=== PATIENT | female | born 1965 | race Caucasian/White ===

== ENCOUNTER 2021-11-24 23:08 | Inpatient (IN) | payer SELFPAY ==
[2021-11-24 23:14] VITALS: TEMP 36.3
--- NOTE | 2021-11-24 23:15 | RT.EKG_ITS ---
APPROVED REPORT Exam: Resting ECG Reason for Exam: syncope Patient Location: E HR:106 bpm ECG Measurements Heart Rate 106 AXIS SD 170 P 98 QRSd 94 QRS 55 QT 370 T 79 QTc 493 Conclusion Sinus tachycardia...rate> 99 Right atrial enlargement...P>0.25mV 2 lds or<-0.24mV aVR/aVL Abnrm T, consider ischemia, anterolateral lds...T <-0.20mV, I aVL V2-V6 significant motion artifact, sinus tachycardia
[2021-11-24 23:18] VITALS: RESP 26
--- NOTE | 2021-11-24 23:45 | DI.CT_ITS ---
Exam(s) CT HEAD WO EXAM: CT HEAD WO CLINICAL HISTORY: altered mental status. TECHNIQUE: Imaging Protocol: Axial computed tomography images with coronal and sagittal reformatted images were created and reviewed COMPARISON: No exams were available for comparison FINDINGS: There are no skull fractures nor fluid in the visualized paranasal sinuses. There is no evidence of intracranial hemorrhage, mass effect, or shift of midline structures. There are no extra-axial fluid collections. The ventricles are not enlarged or shifted and there is no blo od within the ventricular system nor within the basal cisterns. There is some mild bilateral periventricular hypodensity consistent chronic small vessel disease. So me asymmetric hypodensity in the right frontal lobe white matter noted which is most probably from pr ior ischemic event. IMPRESSION: White matter findings as described above, most prominent in the right frontal lobe. If clinically indicated follow-up MRI with diffusion imaging can be performed. RADIATION DOSE DELIVERED: 715.42mGy.cm Total DLP DATA REPOSITORY: All CT scans at this facility are submitted to the National Radiology Data Registry (NRDR) Dose Index Registry (DIR) with the [employer] (ACR). RADIATION OPTIMIZATION: All CT scans at this facility use at least one of these dose optimization te chniques: automated exposure control; mA and/or kV adjustment per patient size (includes targeted exa ms where dose is matched to clinical indication); or iterative reconstruction.
--- NOTE | 2021-11-24 23:45 | DI.CT_ITS ---
Exam(s) CT CHEST/ABD/PEL WO EXAM: CT CHEST/ABD/PEL WO CLINICAL HISTORY: ams, ?pneumonia, ?cirrhosis. TECHNIQUE: Imaging Protocol: Axial computed tomography images with coronal and sagittal reformatted images were created and reviewed CONTRAST MATERIAL: Intravenous: none Oral: None COMPARISON: No exams were available for comparison FINDINGS: CHEST: LUNGS: There are no significant focal right lung findings. In the left lung there are 2 adjacent fang und-glass nodular infiltrates in the apical posterior segment of the left upper lobe, with the larger of these 2 adjacent findings measuring 1.3 x 0.9 cm. The more medial and smaller nodular infiltrate at that level measures 7 x 6 millimeters. There is a tiny 2-3 millimeter fissure based nodule seen laterally in the left lung superior lingular segment level.. No pleural effusions on either side. MEDIASTINUM: No obvious hilar nor mediastinal adenopathy. Visualized thyroid unremarkable. CARDIAC: Heart size is normal. There is no pericardial effusion.Caliber of the thoracic aorta is wit hin normal limits. OSSEOUS: No significant osseous lesions.No fractures. ABDOMEN: There is no ascites. LIVER: There are no obvious focal hepatic lesions evident of this noninfused study. GALLBLADDER/BILIARY: No obvious gallbladder pathology. CBD is not dilated. PANCREAS: No evidence of obvious pancreatic mass nor dilatation of the pancreatic duct. SPLEEN: Spleen is not enlarged. No obvious intrasplenic lesions. ADRENALS: There are no significant adrenal masses. KIDNEYS: No calculi nor hydronephrosis. No obvious solid renal masses. No cysts evident. ABDOMINAL AORTA: Mild fusiform dilatation of the inferior aspect of the abdominal aorta. Maximum nicolás meter, however, is only 2 cm. The common iliac arteries are heavily calcified and not dilated. LYMPH NODES: There is no retroperitoneal nor para-aortic adenopathy. ABDOMINAL WALL/GI: No evidence of significant anterior abdominal wall nor inguinal hernia. There is a diffuse colitis pattern involving the inter tire colon with relative sparing of the rectos igmoid. Remainder of the colon exhibits circumferential mural thickening and pericolonic streaking. PELVIS: LYMPH NODES: There is no intrapelvic nor inguinal adenopathy. GI: No evidence of appendicitis.No evidence of sigmoid diverticulitis. URINARY BLADDER: No calculi nor obvious masses evident REPRODUCTIVE: Uterus is surgically absent. There are no abnormal adnexal masses. OSSEOUS: No significant osseous lesions. IMPRESSION: 1. There are 2 noncalcified ground-glass nodular infiltrates in the left upper lobe, with the larger of the 2 measuring 13 x 9 millimeters. These require follow-up. No other focal lung findings and no pleural effusions nor intrathoracic adenopathy. 2. There is a diffuse colitis pattern involving the entire colon with relative sparing of the rectosi gmoid. Infectious versus inflammatory versus is ischemic. 3. No ascites evident. RADIATION DOSE DELIVERED: 976.23mGy.cm Total DLP DATA REPOSITORY: All CT scans at this facility are submitted to the National Radiology Data Registry (NRDR) Dose Index Registry (DIR) with the [employer] (ACR). RADIATION OPTIMIZATION: All CT scans at this facility use at least one of these dose optimization te chniques: automated exposure control; mA and/or kV adjustment per patient size (includes targeted exa ms where dose is matched to clinical indication); or iterative reconstruction.
--- NOTE | 2021-11-24 23:47 | ED.GENADUL_ITS ---
Discharge Plan Disposition Patient Disposition: [facility] INPATIENT Condition: Serious Discharge Details Clinical Impression: Uremia, Altered mental status Primary Care Provider: Unknown,Unknown ED Provider: Fuad Tamez Home Meds and New Rx's Prescriptions: No Action No Known Home Meds Medical Decision Making 57 yo female with unknown medical history comes in with ems with altered mental status. It is unclear how long she was altered for, ems was called by unknown person in [place] for ams. The patient arrives alert but is not oriented to place or time, does know her name. She states she is in [place] and that she lives in [place] but I'm not sure if this is accurate given most answers she gives are not correct. She is noted to be jaundiced, when asked if she drinks alcohol she says sometimes. She denies any pain anywhere, has asterixis on exam is restless in the bed, and doesn't follow commands. I suspect that she is in hepatic encephalopathy based on her exam findings, will evaluate for potential sdh with ct, evaluate for pneumonia, cirrhosis with ct chest/abd pelvis and also evaluate for electrolyte abnormalities. History limited due to patient's AMS, never been at this hospital, and no bystanders we can contact (ems did not have any numbers either for close contacts or family). pt's head ct unremarkable, chest ct shows no focal consolidation, minimal nonspecific subpleural nodularity in right upper lobe infectious vs inflammatory. CT abdomen shows mild colitis, has not produced any diarrhea here. . Labs remarkable for wbc of 16 with plt of 33, bun 96, creatinine 6.3 with gfr 6.83, bilirbuin 2.0, ast 100, troponin 200 which is likely from the underlying renal issue and not type 1 mi, lipase 1333, negative ammonia level. She remains altered, concern this could be hepatorenal syndrome vs severe dehydration vs sepsis. Given unclear picture and the groud glass opacities on CT and colitis on CT ordered zosyn, discussed with hospitalist who accepts for admission for continued monitoring and treatment. 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 K is 3.1 but given her renal function being so low will hold on repletion repeat troponin essentially unchanged, pt stable still normotensive with HR of 80 Differential Diagnosis Differential Diagnosis: cirrhosis, wernicke's, electrolyte abnormality Imaging Data Radiologic Study: Attestation: I personally reviewed and interpreted this imaging study as follows: Imaging: CT Scan Radiologist's impression: Exam: CT Head Without Contrast Exam date and time: 11/25/2021 12:36 AM Age: 57 years old Clinical indication: Altered mental status/memory loss; Patient HX: AMS TECHNIQUE: Imaging protocol: Computed tomography of the head without contrast. COMPARISON: No relevant prior studies available. FINDINGS: Brain: Prominence of cerebral sulci reflects an element of cerebral atrophy. Poorly marginated hypodensities seen throughout the deep and periventricular white matter of both cerebral hemispheres are consistent with microvascular ischemic changes and more focal encephalomalacia involving cortex and subcortical white matter in the anterolateral right frontal lobe is consistent with a superimposed chronic ischemic insult. Brainstem and cerebellum are unremarkable and there is no evidence of acute infarct or recent intracranial hemorrhage. Cerebral ventricles: Mild dilatation of the 3rd and lateral ventricles is commensurate with the degree of cerebral atrophy. Paranasal sinuses: Mucosal disease is seen along the inferior margins of the right maxillary sinus with other paranasal sinuses clear throughout. Mastoid air cells: Grossly clear bilaterally. Bones/joints: Bony calvarium and skull base are intact and no acute fractures are detected. Soft tissues: Unremarkable. IMPRESSION: Cerebral atrophy and chronic ischemic changes with no evidence of acute infarct, recent hemorrhage or hydrocephalus. No acute intracranial process is detected. Radiologic Study #2: Attestation: I personally reviewed and interpreted this imaging study as follows: Imaging: CT Scan Radiologist's impression: PROCEDURE INFORMATION: Exam: CT Chest Without Contrast; Diagnostic Exam date and time: 11/25/2021 12:38 AM Age: 57 years old Clinical indication: Condition or disease; Patient HX: AMS, ? cirrhosis, ? pneumonia TECHNIQUE: Imaging protocol: Diagnostic computed tomography of the chest without contrast. COMPARISON: No relevant prior studies available. FINDINGS: Lungs: Vague minimal ground-glass attenuation in the left upper lobe. 5 mm vague ground-glass density in the lower lobes. Minimal emphysema. Faint subpleural nodules in the right lung apex No consolidation. No masses. Pleural spaces: No pneumothorax. No pleural effusion. Heart: No cardiomegaly. No pericardial effusion. Lymph nodes: No enlarged lymph nodes. Vasculature: No aortic aneurysm. Bones/joints: Unremarkable. No acute fracture. Soft tissues: Unremarkable. IMPRESSION: No focal consolidation observed Minimal nonspecific subpleural nodularity in the right upper lobe and vague ground-glass densities bilaterally. Findings are of unclear etiology and may be infectious/inflammatory. Consider continued chest CT follow-up within 6- 12 months IMPRESSION: Mild colitis as described presumed infectious/inflammatory. Correlate for Clostridium difficile Thank you for allowing us to participate in the care of your patient. Lab Data Lab results reviewed: Yes I reviewed the patient's lab results. ECG Data Attestation: I personally reviewed and interpreted this ECG (s) as follows: Prior ECG tracings: not available for review Interpretation: significant motion artifact limits interpretation, rate of 106, no acute isch emic findings HPI General Mode of arrival: EMS . Date/Time Provider Initiated Documentation: 11/24/21 23:15 . Limitations to Documentation: altered mental status . Information obtained by: EMS . History of Present Illness 57 year old F presents to the emergency department with the chief complaint of altered mental status, Patient started experiencing this unknown No relieving factors improve symptom(s), No exacerbating factors reported . Patient did receive the following treatments prior to arrival, none Related Data Home Medications Medication Instructions Recorded Confirmed Unknown [No Known Home Meds] 11/24/21 11/24/21 Allergies Allergy/AdvReac Type Severity Reaction Status Date / Time No Known Allergies Allergy Unverified 11/24/21 23:18 General Stated Complaint: AMS/LOC CANDELARIA: 3 Review of Systems Unobtainable due to mental status PFSH All Active Problems (Updated 11/25/21 @ 04:02 by Fuad Tamez MD) Uremia (Acute) Altered mental status (Acute) Social History Smoking/Tobacco Use Status: Current-Occasional Smoking risk assessment performed?: Yes Details: Patient unable to answer questions. Do you feel safe at home: Yes Do you feel safe in your relationship?: Yes Exam Const General: no acute distress Orientation: alert and not oriented x3 HENMT Head: normal to inspection Ears: external ears normal General nose exam: external nose normal Mouth: moist mucous membranes Eyes General: appearance normal, both eyes and all related structures Neck Neck: normal visual inspection Resp Effort & Inspection: normal respiratory effort and able to speak in complete sentences Cardio Rate: regular rate Skin General skin exam: jaundice Neuro General: patient alert and patient oriented x3 Extrem General: normal to inspection Psych Mental Status: mental status grossly normal Course Vital Signs Vital signs: Vital Signs Temperature 36.3 C L 05/14/22 23:14 Temperature 36.3 C L 11/24/21 23:14 Temperature Source Skin 11/24/21 23:14 Respiratory Rate 26 H 11/24/21 23:18 Respiratory Effort 11/24/21 23:18 Respiratory Depth Normal 11/24/21 23:18 Respiratory Pattern Normal 11/24/21 23:18 Pain Level 0 11/24/21 23:14
[2021-11-25] VITALS (101 sets, daily range): BP systolic 101–187; BP diastolic 57–84; PULSE 87–110; RESP 16–38; TEMP 36.3–37.3; O2SAT 87–100
--- NOTE | 2021-11-25 00:54 | DI.VRAD_ITS ---
PROCEDURE INFORMATION: Exam: CT Head Without Contrast Exam date and time: 11/25/2021 12:36 AM Age: 57 years old Clinical indication: Altered mental status/memory loss; Patient HX: AMS TECHNIQUE: Imaging protocol: Computed tomography of the head without contrast. COMPARISON: No relevant prior studies available. FINDINGS: Brain: Prominence of cerebral sulci reflects an element of cerebral atrophy. Poorly marginated hypodensities seen throughout the deep and periventricular white matter of both cerebral hemispheres are consistent with microvascular ischemic changes and more focal encephalomalacia involving cortex and subcortical white matter in the anterolateral right frontal lobe is consistent with a superimposed chronic ischemic insult. Brainstem and cerebellum are unremarkable and there is no evidence of acute infarct or recent intracranial hemorrhage. Cerebral ventricles: Mild dilatation of the 3rd and lateral ventricles is commensurate with the degree of cerebral atrophy. Paranasal sinuses: Mucosal disease is seen along the inferior margins of the right maxillary sinus with other paranasal sinuses clear throughout. Mastoid air cells: Grossly clear bilaterally. Bones/joints: Bony calvarium and skull base are intact and no acute fractures are detected. Soft tissues: Unremarkable. IMPRESSION: Cerebral atrophy and chronic ischemic changes with no evidence of acute infarct, recent hemorrhage or hydrocephalus. No acute intracranial process is detected. Dictated and Authenticated by: Travis Alonso MD. Ordering:ROSARIO Merida MD
--- NOTE | 2021-11-25 01:06 | DI.VRAD_ITS ---
PROCEDURE INFORMATION: Exam: CT Chest Without Contrast; Diagnostic Exam date and time: 11/25/2021 12:38 AM Age: 57 years old Clinical indication: Condition or disease; Patient HX: AMS, ? cirrhosis, ? pneumonia TECHNIQUE: Imaging protocol: Diagnostic computed tomography of the chest without contrast. COMPARISON: No relevant prior studies available. FINDINGS: Lungs: Vague minimal ground-glass attenuation in the left upper lobe. 5 mm vague ground-glass density in the lower lobes. Minimal emphysema. Faint subpleural nodules in the right lung apex No consolidation. No masses. Pleural spaces: No pneumothorax. No pleural effusion. Heart: No cardiomegaly. No pericardial effusion. Lymph nodes: No enlarged lymph nodes. Vasculature: No aortic aneurysm. Bones/joints: Unremarkable. No acute fracture. Soft tissues: Unremarkable. IMPRESSION: No focal consolidation observed Minimal nonspecific subpleural nodularity in the right upper lobe and vague ground-glass densities bilaterally. Findings are of unclear etiology and may be infectious/inflammatory. Consider continued chest CT follow-up within 6-12 months PROCEDURE INFORMATION: Exam: CT Abdomen And Pelvis Without Contrast Exam date and time: 11/25/2021 12:38 AM Age: 57 years old Clinical indication: Condition or disease; Patient HX: AMS, ? cirrhosis, ? pneumonia TECHNIQUE: Imaging protocol: Computed tomography of the abdomen and pelvis without contrast. COMPARISON: No relevant prior studies available. FINDINGS: Liver: Normal. No mass. Gallbladder and bile ducts: Normal. No calcified stones. No ductal dilation. Pancreas: Normal. No ductal dilation. Spleen: Normal. No splenomegaly. Adrenal glands: Normal. No mass. Kidneys and ureters: Normal. No hydronephrosis. Stomach and bowel: No obstruction. Mild colonic mucosal thickening with minimal surrounding infiltration and fluid. Appendix: No evidence of appendicitis. Intraperitoneal space: Unremarkable. No free air. No significant fluid collection. Vasculature: Atherosclerosis. No abdominal aortic aneurysm. Lymph nodes: Unremarkable. No enlarged lymph nodes. Urinary bladder: Unremarkable as visualized. Reproductive: Post hysterectomy Bones/joints: Unremarkable. No acute fracture. Soft tissues: Unremarkable. IMPRESSION: Mild colitis as described presumed infectious/inflammatory. Correlate for Clostridium difficile Dictated and Authenticated by: Ifeanyi Mcclellan MD. Ordering:ROSARIO Merida MD
[2021-11-25 01:22] LABS: Source Nasal/Nares
[2021-11-25 01:24] LABS: BE (Venous) -8 mmol/L (-2-3); HCO3 (Venous) 19 mmol/L (23-28); O2 Sat (Venous) 49 %; TCO2 (Venous) 17 mmol/L (24-29); pCO2 (Venous) 39 mmHg (41-51); pO2 (Venous) 29 mmHg
[2021-11-25 01:29] LABS: Abs Immature Grans 0.79 10^3/uL (0.0-0.06); HGB 13.5 g/dL (11.2-15.7); MCH 31.1 pg (27.0-33.0); MCHC 35.5 % (32.0-36.0); MCV 88 fL (80-95); RBC 4.34 10^6/uL (3.93-5.22); RDW 13.3 % (11.7-14.6); RDW-SD 42.9 fL; WBC 16.19 10^3/uL (4.4-10.8)
[2021-11-25 01:41] LABS: ALT 30 U/L (14-59); AST 100 U/L (15-37); Albumin 2.7 g/dL (3.4-5.0); Alkaline Phosphatase 83 U/L (46-116); Anion Gap 17.4 mmol/L (3-11); Bilirubin, Direct 0.9 mg/dL (0.0-0.2); CO2 19.6 mmol/L (21.0-32.0); Calcium 9.1 mg/dL (8.5-10.1); Chloride 95 mmol/L (98-107); Estimated GFR 6.83 (mL/min/1.73m2); Glucose 150 mg/dL (74-106); Lipase 1333 U/L (73-393); Magnesium 2.4 mg/dL (1.8-2.4); Potassium 3.1 mmol/L (3.5-5.1); Sodium 132 mmol/L (136-145); Total Protein 6.8 g/dL (6.4-8.2)
[2021-11-25 01:45] LABS: Ammonia 10 umol/L (11-32)
[2021-11-25 01:50] LABS: Troponin I 208 ng/L (<or=60)
[2021-11-25 01:53] LABS: ETHANOL BLOOD < 3.0 mg/dL (<10)
[2021-11-25 01:54] LABS: BUN 96 mg/dL (7-18); CREATININE 6.3 mg/dL (0.55-1.02)
[2021-11-25 01:56] LABS: Salicylate 4.2 mg/dL (<2.8)
[2021-11-25 02:06] LABS: Absolute Basophil Count 0.16 10^3/uL (0.0-0.2); Absolute Lymphocyte Count 3.08 10^3/uL (1.2-3.4); Absolute Neutrophil Count 11.49 10^3/uL (1.2-6.7); Atypical Lymphocytes % 3; Bands % 3; Metamyelocytes % 1; Platelet Count 33 10^3/uL (130-400)
[2021-11-25 02:07] LABS: Acetaminophen < 2 ug/mL (10-30); Diff Comment Manual Differential; RBC Morphology Normal
[2021-11-25] MEDS: Normal Saline 1,000 ML 1000 ML IV (02:38)
[2021-11-25] MEDS: Normal Saline 500 ML 1000 ML IV ×3 (03:00→13:52)
[2021-11-25 03:03] LABS: COVID-19 PCR Negative (Negative)
[2021-11-25 03:42] LABS: Lactate 3.6 mmol/L (0.6-1.4)
[2021-11-25 04:03] LABS: Troponin I 211 ng/L (<or=60)
[2021-11-25] MEDS: THIAMINE 500 MG in Normal Saline 100 ML 200 MG IVPB ×3 (04:22→20:18)
[2021-11-25 04:33] LABS: Procalcitonin 1.1 ng/mL
[2021-11-25] MEDS: PIPERACILLIN/TAZO 4.5 GM in Normal Saline 100 ML IVPB (04:34)
--- NOTE | 2021-11-25 06:41 | HPE_ITS ---
Date of service: 11/25/21 Time of Service: 06:06 Assessment and Plan Assessment and plan (1) Renal failure: Start date: 11/25/21 Status: Acute Assessment and plan: This is a 57-year-old lady who does not seek medical care routinely but no family or friends to represent her history and no previous medical record presented to the ED after an out of collar called EMS to have patient evaluated for altered mental status. She was found to have a creatinine of 6.3 with metabolic acidosis and low potassium. She was admitted for IV hydration and potassium repletion as well as previous labs and further evaluation of her chronic problems including most likely alcoholic cirrhosis with chronic alcoholic hepatitis and daily alcohol use. She does appear to have progressed by management of likely but difficult exam is on appear to be having emesis or abdominal discomfort that she reports. Imaging did reveal possible colitis and also patient has some right upper lobe infiltrates which will need covered with antibiotic therapy. She was placed on Zosyn. Overall she should do well with hydration and her baseline renal function will be manifested with time. Specialty consultation will be sought as needed. Patient is a full code by default. (2) Alcoholic hepatitis without ascites: Start date: 11/25/21 Status: Acute Assessment and plan: IV hydration and trend daily hepatic function. Long-term patient will need further evaluation by hepatology and should be evaluated for esophageal varices. She does have sequela of electrolyte abnormalities and thrombocytopenia with DVT prophylaxis (3) Encephalopathy acute: Start date: 11/25/21 Status: Acute Assessment and plan: Monitor labs daily and watch for clearing of metabolic acidosis. Patient will be treated for possible alcohol withdrawal using CIWA protocol with Ativan. This may worsen before improving with alcohol withdrawal. (4) Alcoholism with alcohol dependence: Start date: 11/25/21 Status: Acute Assessment and plan: She will protocol with Ativan and IV hydration with repletion of electrolyte abnormalities. (5) Pancreatitis, acute: Start date: 11/25/21 Status: Acute Assessment and plan: Bowel rest and follow-up lipase. IV hydration. Ultrasound of abdomen to look at renal collection system because of acute renal failure as well as gallbladder and biliary tree with pancreas when ultrasound available. Pain management as needed. (6) Pneumonia: Start date: 11/25/21 Status: Acute Assessment and plan: Bilateral groundglass opacities and right upper lobe infiltrate possible the patient covered with Zosyn. Follow-up imaging as indicated. (7) Colitis: Start date: 11/25/21 Status: Acute Assessment and plan: Imaging suggested colitis and this would be covered with Zosyn with follow-up clinically. Patient can be further evaluated once her encephalopathy is clearing. (8) NSTEMI (non-ST elevated myocardial infarction): Start date: 11/25/21 Status: Acute Assessment and plan: Patient has no known history of CAD but no history is available. She had elevation in her troponins at least 4 times normal but this is trending downward and thought to be secondary to her acute metabolic state rather than primary cardiac event. Monitor with telemetry and consider follow-up cardiology and echocardiogram if indicated. History of Present Illness History of Present Illness Chief Complaint: Increased confusion with EMS called by unknown caller Narrative: This is a 57-year-old female patient who was brought to the ED after EMS was called by an unknown caller to report to [facility] because of patient's altered mental status. Patient was confused in the ED and stated that she lives in [place], [place] and was very jittery and difficult to examine because of withdrawing with any touch to her body. She does have history of alcohol with drinking daily and she was noted to be jaundiced. In the ED she was found to have alcoholic hepatitis with acute kidney injury at least and possibly worsening of chronic problem of CKD with no history or previous records to review. The creatinine was above 5. He was started on IV fluid resuscitation which will be continued and will have cardiac monitoring with troponins trended with unknown cardiac status. Her lipase was elevated and she will be on bowel rest for now. She is not reporting any symptoms but is very jittery and difficult to engage in conversation he is a very poor historian and probably encephalopathic with her acute renal failure and alcoholic hepatitis though her ammonia level was not elevated. Plan to follow-up with patient is a full code. Imaging did reveal possible pneumonia and colitis. Patient was started on Zosyn in the ED which will be continued. She was noted in the ED to have asterixis which would go along with liver failure. He most likely has chronic liver disease and most likely cirrhosis despite history and her liver enzymes would not be as elevated with this chronic scenario. The patient's alcohol level in the ED was notable and she will be placed on alcohol withdrawal protocol with CIWA scoring and Ativan. By default she is a full code. In the ED: Provider recorded this is a 57-year-old female with unknown medical history comes in with ems with altered mental status. It is unclear how long she was altered for, ems was called by unknown person in [place] for ams. The patient arrives alert but is not oriented to place or time, does know her name. She states she is in [place] and that she lives in [place] but I'm not sure if this is accurate given most answers she gives are not correct. She is noted to be jaundiced, when asked if she drinks alcohol she says sometimes. She denies any pain anywhere, has asterixis on exam is restless in the bed, and doesn't follow commands. I suspect that she is in hepatic encephalopathy based on her exam findings, will evaluate for potential sdh with ct, evaluate for pneumonia, cirrhosis with ct chest/abd pelvis and also evaluate for electrolyte abnormalities. History limited due to patient's AMS, never been at this hospital, and no bystanders we can contact (ems did not have any numbers either for close contacts or family). The provider also noted abnormal electrolytes abnormality which would be repeated. This was consistent with patient's chronic alcohol use. Review of Systems Narrative: 13 point review of systems otherwise unrevealing or stable. PFSH All Active Problems (Updated 11/25/21 @ 11:39 by Speedy Noyola) NSTEMI (non-ST elevated myocardial infarction) (Acute) Colitis (Acute) Pneumonia (Acute) Pancreatitis, acute (Acute) Alcoholism with alcohol dependence (Acute) Encephalopathy acute (Acute) Alcoholic hepatitis without ascites (Acute) Renal failure (Acute) Uremia (Acute) Altered mental status (Acute) Social History Smoking/Tobacco Use Status: Current-Occasional Smoking risk assessment performed?: Yes Details: Patient unable to answer questions. Do you feel safe at home: Yes Do you feel safe in your relationship?: Yes Meds Allergies and Home Medications Allergies Allergy/AdvReac Type Severity Reaction Status Date / Time No Known Allergies Allergy Unverified 11/24/21 23:18 Home Medications Medication Instructions Recorded Confirmed Type Unknown [No Known Home Meds] 11/24/21 11/24/21 History Exam Narrative Exam Narrative: General: Patient is lying in bed on the left side in the position in moderate severe distress being very jittery with any testing in her withdrawal and complain of discomfort. She is not oriented to person or time and is possibly oriented to place knowing that she is in the hospital. She appears older than stated age. She is disheveled. HEENT: Normocephalic, coarsened facial features, eyes with pupils equal and reac tive to light symmetrically, sclerae slightly icteric and extraocular movement intact. Oropharynx with dry mucosa. Neck: Supple without JVD. Lungs: Fair aeration and clear as patient allows exam. Breast: Exam deferred. Heart: Regular rate and rhythm with no appreciable murmur or gallop as patient a llows exam. She withdraws to any touch. Abdomen: Soft with no focalizing tenderness but once again difficult exam with patient withdrawing from examiner to touch. Bowel sounds appear to be normal. Genitalia/rectal: Exam deferred. Skin: Slightly jaundiced, warm and dry. Decreased turgor. Extremities: Without clubbing, cyanosis or pitting edema. Peripheral pulses intact. Neuro: Cranial nerves II through XII grossly intact. Asterixis my exam in the ED and tremulous during my exam. Patient not cooperative. No focalizing motor deficits. No evidence. Psych: Encephalopathic with patient not able to answer questions appropriately, flattened affect and mood noninterpretable. No abnormal thought processes manifested with patient having minimal conversation. Remote and recent memory not testable. Results Imaging Imaging Studies: Exam: CT Head Without Contrast Exam date and time: 11/25/2021 12:36 AM Age: 57 years old Clinical indication: Altered mental status/memory loss; Patient HX: AMS TECHNIQUE: Imaging protocol: Computed tomography of the head without contrast. COMPARISON: No relevant prior studies available. FINDINGS: Brain: Prominence of cerebral sulci reflects an element of cerebral atrophy. Poorly marginated hypodensities seen throughout the deep and periventricular white matter of both cerebral hemispheres are consistent with microvascular ischemic changes and more focal encephalomalacia involving cortex and subcortical white matter in the anterolateral right frontal lobe is consistent with a superimposed chronic ischemic insult. Brainstem and cerebellum are unremarkable and there is no evidence of acute infarct or recent intracranial hemorrhage. Cerebral ventricles: Mild dilatation of the 3rd and lateral ventricles is commensurate with the degree of cerebral atrophy. Paranasal sinuses: Mucosal disease is seen along the inferior margins of the right maxillary sinus with other paranasal sinuses clear throughout. Mastoid air cells: Grossly clear bilaterally. Bones/joints: Bony calvarium and skull base are intact and no acute fractures are detected. Soft tissues: Unremarkable. IMPRESSION: Cerebral atrophy and chronic ischemic changes with no evidence of acute infarct, recent hemorrhage or hydrocephalus. No acute intracranial process is detected. Exam: CT Chest Without Contrast; Diagnostic Exam date and time: 11/25/2021 12:38 AM Age: 57 years old Clinical indication: Condition or disease; Patient HX: AMS, ? cirrhosis, ? pneumonia TECHNIQUE: Imaging protocol: Diagnostic computed tomography of the chest without contrast. COMPARISON: No relevant prior studies available. FINDINGS: Lungs:? Vague minimal ground-glass attenuation in the left upper lobe.? 5 mm vague ground-glass density in the lower lobes.? Minimal emphysema.? Faint subpleural nodules in the right lung apex No consolidation. No masses. Pleural spaces: No pneumothorax. No pleural effusion. Heart: No cardiomegaly. No pericardial effusion. Lymph nodes: No enlarged lymph nodes. Vasculature: No aortic aneurysm.? Bones/joints: Unremarkable. No acute fracture. Soft tissues: Unremarkable. IMPRESSION: No focal consolidation observed Minimal nonspecific subpleural nodularity in the right upper lobe and vague ground-glass densities bilaterally.? Findings are of unclear etiology and may be infectious/inflammatory.? Consider continued chest CT follow-up within 6-12 months PROCEDURE INFORMATION: Exam: CT Abdomen And Pelvis Without Contrast Exam date and time: 11/25/2021 12:38 AM Age: 57 years old Clinical indication: Condition or disease; Patient HX: AMS, ? cirrhosis, ? pneumonia TECHNIQUE: Imaging protocol: Computed tomography of the abdomen and pelvis without contrast. COMPARISON: No relevant prior studies available. FINDINGS: Liver: Normal. No mass. Gallbladder and bile ducts: Normal. No calcified stones. No ductal dilation. Pancreas: Normal. No ductal dilation. Spleen: Normal. No splenomegaly. Adrenal glands: Normal. No mass. Kidneys and ureters: Normal. No hydronephrosis. Stomach and bowel: No obstruction.? Mild colonic mucosal thickening with minimal surrounding infiltration and fluid. Appendix: No evidence of appendicitis. Intraperitoneal space: Unremarkable. No free air. No significant fluid collection. Vasculature:? Atherosclerosis. No abdominal aortic aneurysm. Lymph nodes: Unremarkable. No enlarged lymph nodes. Urinary bladder: Unremarkable as visualized. Reproductive:? Post hysterectomy Bones/joints: Unremarkable. No acute fracture. Soft tissues: Unremarkable. IMPRESSION: Mild colitis as described presumed infectious/inflammatory.? Correlate for Clostridium difficile Labs Result diagrams: 11/24/21 01:15 11/25/21 09:00 Labs: Laboratory Results - last 24 hr 11/24/21 11/24/21 11/24/21 00:49 01:15 01:15 WBC RBC Hgb Hct MCV MCH MCHC RDW Plt Count MPV Immature Gran % Neutrophils % Band Neutrophils % Lymphocytes % Atypical Lymphs % Monocytes % Eosinophils % Basophils % Metamyelocytes % Nucleated RBC % Absolute Neutrophils Absolute Lymphocytes Absolute Monocytes Absolute Eosinophils Absolute Basophils RBC Morphology VBG pH 7.30 L VBG pCO2 39 L VBG pO2 29 VBG HCO3 19 L VBG Total CO2 17 L VBG O2 Saturation 49 VBG Base Excess -8 L VBG Lactate Sodium 132 L Potassium 3.1 L Chloride 95 L Carbon Dioxide 19.6 L Anion Gap 17.4 H BUN 96 H* Creatinine 6.3 H* Estimated GFR/1.73 m2 6.83 Glucose 150 H Calcium 9.1 Magnesium 2.4 Total Bilirubin 2.0 H Conjugated Bilirubin 0.9 H AST 100 H ALT 30 Alkaline Phosphatase 83 Ammonia Troponin I Total Protein 6.8 Albumin 2.7 L Lipase 1333 H Procalcitonin Salicylates Acetaminophen Ethyl Alcohol < 3.0 COVID-19 Source Nasal/Nares SARS-CoV-2 (PCR) Negative 11/24/21 11/24/21 11/24/21 01:15 01:15 01:15 WBC 16.19 H RBC 4.34 Hgb 13.5 Hct 38.0 MCV 88 MCH 31.1 MCHC 35.5 RDW 13.3 Plt Count 33 L MPV Immature Gran % See Differential Neutrophils % 68.0 Band Neutrophils % 3 Lymphocytes % 16.0 Atypical Lymphs % 3 Monocytes % 8.0 Eosinophils % 0.0 Basophils % 1.0 Metamyelocytes % 1 Nucleated RBC % 0.0 Absolute Neutrophils 11.49 H Absolute Lymphocytes 3.08 Absolute Monocytes 1.30 H Absolute Eosinophils 0.00 Absolute Basophils 0.16 RBC Morphology Normal VBG pH VBG pCO2 VBG pO2 VBG HCO3 VBG Total CO2 VBG O2 Saturation VBG Base Excess VBG Lactate Sodium Potassium Chloride Carbon Dioxide Anion Gap BUN Creatinine Estimated GFR/1.73 m2 Glucose Calcium Magnesium Total Bilirubin Conjugated Bilirubin AST ALT Alkaline Phosphatase Ammonia 10 L Troponin I Total Protein Albumin Lipase Procalcitonin Salicylates 4.2 Acetaminophen < 2 Ethyl Alcohol COVID-19 Source SARS-CoV-2 (PCR) 11/24/21 11/25/21 11/25/21 01:15 03:20 03:20 WBC RBC Hgb Hct MCV MCH MCHC RDW Plt Count MPV Immature Gran % Neutrophils % Band Neutrophils % Lymphocytes % Atypical Lymphs % Monocytes % Eosinophils % Basophils % Metamyelocytes % Nucleated RBC % Absolute Neutrophils Absolute Lymphocytes Absolute Monocytes Absolute Eosinophils Absolute Basophils RBC Morphology VBG pH VBG pCO2 VBG pO2 VBG HCO3 VBG Total CO2 VBG O2 Saturation VBG Base Excess VBG Lactate 3.6 H* Sodium Potassium Chloride Carbon Dioxide Anion Gap BUN Creatinine Estimated GFR/1.73 m2 Glucose Calcium Magnesium Total Bilirubin Conjugated Bilirubin AST ALT Alkaline Phosphatase Ammonia Troponin I 208 H* 211 H* Total Protein Albumin Lipase Procalcitonin 1.1 Salicylates Acetaminophen Ethyl Alcohol COVID-19 Source SARS-CoV-2 (PCR) Last Vital Signs Temp 36.6 C 11/25/21 05:16 Pulse 96 H 11/25/21 05:26 Resp 19 11/25/21 04:55 BP 125/59 L 11/25/21 04:55 Pulse Ox 99 11/25/21 04:55
[2021-11-25] MEDS: MULTIVITAMIN 10 ML, THIAMINE 100 MG, FOLIC ACID 1 MG in DEXTROSE 5%-0.45% SALINE 1,000 ML 150 ML IV (08:17)
[2021-11-25 09:03] LABS: Lactate 0.8 mmol/L (0.6-1.4)
[2021-11-25 09:14] LABS: INR 1.2 (0.9-1.1)
[2021-11-25] MEDS: Lactated Ringers 1,000 ML 1000 ML IV (09:26)
--- NOTE | 2021-11-25 09:26 | PT.INNT ---
PT Notes Visit Reasons: Altered Mental Status, Uremia Orders received on this date for PT evaluation. Patient undergoing further medical treatment. IE on hold until tomorrow per nursing (Tim). Fuad Singer PT, DPT
[2021-11-25 09:50] LABS: Anion Gap 16.9 mmol/L (3-11); CO2 15.1 mmol/L (21.0-32.0); Calcium 7.8 mg/dL (8.5-10.1); Chloride 102 mmol/L (98-107); Estimated GFR 6.96 (mL/min/1.73m2); Glucose 127 mg/dL (74-106); Potassium 3.3 mmol/L (3.5-5.1); Sodium 134 mmol/L (136-145); TSH (W/Ref FT4) 0.92 uIU/mL (0.36-3.74)
[2021-11-25 09:53] LABS: BUN 98 mg/dL (7-18); CREATININE 6.2 mg/dL (0.55-1.02); Troponin I 173 ng/L (<or=60)
[2021-11-25 10:08] LABS: Lab Add On Test DONE
[2021-11-25 10:24] LABS: Creatine Kinase 564 U/L (26-192)
[2021-11-25] MEDS: LORazepam 2 MG/ML VIAL 1 MG IVP ×2 (10:41)
--- NOTE | 2021-11-25 11:31 | W.PM.PROGNOT ---
Date of Service Date of service: 11/25/21 Time of Service: 10:32 Subjective Subjective Patient reports: still having pain and other Interval history since last seen: Patient still has not made urine, given 2 liter of IVF, she is also having pain to bilateral CVA, unable to obtain u/s today, will obtain renal u/s tomorrow, urology consult. Continue to follow labs. Patient is jaundice, unable to answer questions, does appear that she is a drinker. Will do CIWA, given dose ativan, she is starting to make small amount urine in tube on examination. She is being transferred to ICU at m/s status. Will change to ICU status if patient does not start to turn around make urine and recover or starts to go through severe w/d, can not give phenobarb d/t renal function which has only slightly dropped. Will continue to monitor. Will place u/s for tomorrow and order hep panel. discussed negar Nugent Objective Last Vital Signs Temp 36.8 C 11/25/21 07:33 Pulse 99 H 11/25/21 07:33 Resp 24 11/25/21 07:33 BP 113/71 11/25/21 07:33 Pulse Ox 97 11/25/21 07:33 Laboratory Results - last 24 hr 11/24/21 11/24/21 11/24/21 00:49 01:15 01:15 WBC RBC Hgb Hct MCV MCH MCHC RDW Plt Count MPV Immature Gran % Neutrophils % Band Neutrophils % Lymphocytes % Atypical Lymphs % Monocytes % Eosinophils % Basophils % Metamyelocytes % Nucleated RBC % Absolute Neutrophils Absolute Lymphocytes Absolute Monocytes Absolute Eosinophils Absolute Basophils RBC Morphology PT INR VBG pH 7.30 L VBG pCO2 39 L VBG pO2 29 VBG HCO3 19 L VBG Total CO2 17 L VBG O2 Saturation 49 VBG Base Excess -8 L VBG Lactate Sodium 132 L Potassium 3.1 L Chloride 95 L Carbon Dioxide 19.6 L Anion Gap 17.4 H BUN 96 H* Creatinine 6.3 H* Estimated GFR/1.73 m2 6.83 Glucose 150 H Calcium 9.1 Magnesium 2.4 Total Bilirubin 2.0 H Conjugated Bilirubin 0.9 H AST 100 H ALT 30 Alkaline Phosphatase 83 Ammonia Creatine Kinase Troponin I Total Protein 6.8 Albumin 2.7 L Lipase 1333 H Procalcitonin TSH Salicylates Acetaminophen Ethyl Alcohol < 3.0 COVID-19 Source Nasal/Nares SARS-CoV-2 (PCR) Negative Add-On Test Request 11/24/21 11/24/21 11/24/21 01:15 01:15 01:15 WBC 16.19 H RBC 4.34 Hgb 13.5 Hct 38.0 MCV 88 MCH 31.1 MCHC 35.5 RDW 13.3 Plt Count 33 L MPV Immature Gran % See Differential Neutrophils % 68.0 Band Neutrophils % 3 Lymphocytes % 16.0 Atypical Lymphs % 3 Monocytes % 8.0 Eosinophils % 0.0 Basophils % 1.0 Metamyelocytes % 1 Nucleated RBC % 0.0 Absolute Neutrophils 11.49 H Absolute Lymphocytes 3.08 Absolute Monocytes 1.30 H Absolute Eosinophils 0.00 Absolute Basophils 0.16 RBC Morphology Normal PT INR VBG pH VBG pCO2 VBG pO2 VBG HCO3 VBG Total CO2 VBG O2 Saturation VBG Base Excess VBG Lactate Sodium Potassium Chloride Carbon Dioxide Anion Gap BUN Creatinine Estimated GFR/1.73 m2 Glucose Calcium Magnesium Total Bilirubin Conjugated Bilirubin AST ALT Alkaline Phosphatase Ammonia 10 L Creatine Kinase Troponin I Total Protein Albumin Lipase Procalcitonin TSH Salicylates 4.2 Acetaminophen < 2 Ethyl Alcohol COVID-19 Source SARS-CoV-2 (PCR) Add-On Test Request 11/24/21 11/25/21 11/25/21 01:15 03:20 03:20 WBC RBC Hgb Hct MCV MCH MCHC RDW Plt Count MPV Immature Gran % Neutrophils % Band Neutrophils % Lymphocytes % Atypical Lymphs % Monocytes % Eosinophils % Basophils % Metamyelocytes % Nucleated RBC % Absolute Neutrophils Absolute Lymphocytes Absolute Monocytes Absolute Eosinophils Absolute Basophils RBC Morphology PT INR VBG pH VBG pCO2 VBG pO2 VBG HCO3 VBG Total CO2 VBG O2 Saturation VBG Base Excess VBG Lactate 3.6 H* Sodium Potassium Chloride Carbon Dioxide Anion Gap BUN Creatinine Estimated GFR/1.73 m2 Glucose Calcium Magnesium Total Bilirubin Conjugated Bilirubin AST ALT Alkaline Phosphatase Ammonia Creatine Kinase Troponin I 208 H* 211 H* Total Protein Albumin Lipase Procalcitonin 1.1 TSH Salicylates Acetaminophen Ethyl Alcohol COVID-19 Source SARS-CoV-2 (PCR) Add-On Test Request 11/25/21 11/25/21 11/25/21 09:00 09:00 09:00 WBC RBC Hgb Hct MCV MCH MCHC RDW Plt Count MPV Immature Gran % Neutrophils % Band Neutrophils % Lymphocytes % Atypical Lymphs % Monocytes % Eosinophils % Basophils % Metamyelocytes % Nucleated RBC % Absolute Neutrophils Absolute Lymphocytes Absolute Monocytes Absolute Eosinophils Absolute Basophils RBC Morphology PT 12.0 H INR 1.2 H VBG pH VBG pCO2 VBG pO2 VBG HCO3 VBG Total CO2 VBG O2 Saturation VBG Base Excess VBG Lactate Sodium 134 L Potassium 3.3 L Chloride 102 Carbon Dioxide 15.1 L Anion Gap 16.9 H BUN 98 H* Creatinine 6.2 H* Estimated GFR/1.73 m2 6.96 Glucose 127 H Calcium 7.8 L Magnesium Total Bilirubin Conjugated Bilirubin AST ALT Alkaline Phosphatase Ammonia Creatine Kinase Troponin I 173 H* Total Protein Albumin Lipase Procalcitonin TSH Cancelled 0.92 Salicylates Acetaminophen Ethyl Alcohol COVID-19 Source SARS-CoV-2 (PCR) Add-On Test Request 11/25/21 11/25/21 11/25/21 09:00 09:00 Unknown WBC RBC Hgb Hct MCV MCH MCHC RDW Plt Count MPV Immature Gran % Neutrophils % Band Neutrophils % Lymphocytes % Atypical Lymphs % Monocytes % Eosinophils % Basophils % Metamyelocytes % Nucleated RBC % Absolute Neutrophils Absolute Lymphocytes Absolute Monocytes Absolute Eosinophils Absolute Basophils RBC Morphology PT INR VBG pH VBG pCO2 VBG pO2 VBG HCO3 VBG Total CO2 VBG O2 Saturation VBG Base Excess VBG Lactate 0.8 Sodium Potassium Chloride Carbon Dioxide Anion Gap BUN Creatinine Estimated GFR/1.73 m2 Glucose Calcium Magnesium Total Bilirubin Conjugated Bilirubin AST ALT Alkaline Phosphatase Ammonia Creatine Kinase 564 H Troponin I Total Protein Albumin Lipase Procalcitonin TSH Salicylates Acetaminophen Ethyl Alcohol COVID-19 Source SARS-CoV-2 (PCR) Add-On Test Request DONE
[2021-11-25] MEDS: Normal Saline 1,000 ML 2000 ML IV (12:19)
--- NOTE | 2021-11-25 12:50 | W.ANESVAS ---
Midline Placement Date Performed: 11/25/21 Procedure Time: 12:16 Requesting Provider: Yissel Rudd Procedure Location: Med/Surg Sedation Given (Indicate Dose Given): No Sedation given Patient Mental Status: Awake Sterility: Hand Hygiene, Surgical Cap, Surgical Mask, Sterile Gloves and Chlorhexidine Laterality: Right Insertion Site: Brachial Midline Device: PowerGlide Pro 20G Catheter Length: 10 cm Midline Procedure Procedure: 1% Lidocaine to skin and subcutaneous tissue with 25g needle, Vessel accessed with catheter over needle, Guidewire placed with ease, Catheter placed without resistance and Guidewire removed Dressing: Tegaderm Applied and Statlock Applied Blood Return: Present Flushes: Easily Ultrasound: Sterile probe cover and gel used Ultrasound Image Saved?: Yes Number of Attempts (See previous attempts in note section): 2 Procedure Tolerated: No Complications Procedure Outcome: Successful Performed By: oCrie Macario Supervised By: Jonn Dozier
[2021-11-25 13:55] LABS: C Diff PCR Positive (Negative)
[2021-11-25 15:41] LABS: Anion Gap 12.4 mmol/L (3-11); CO2 18.6 mmol/L (21.0-32.0); Calcium 7.5 mg/dL (8.5-10.1); Chloride 104 mmol/L (98-107); Estimated GFR 7.23 (mL/min/1.73m2); Glucose 138 mg/dL (74-106); Sodium 135 mmol/L (136-145)
[2021-11-25 15:43] LABS: Creatine Kinase 619 U/L (26-192)
[2021-11-25 15:46] LABS: BUN 96 mg/dL (7-18)
[2021-11-25] MEDS: Nicotine 14 MG/24 HR PATCH TD (15:47)
[2021-11-25] MEDS: Lactated Ringers 1,000 ML 200 ML IV ×2 (15:48→20:19)
[2021-11-25] MEDS: metroNIDAZOLE 500 MG/100 ML BAG 100 MG IVPB ×2 (15:48→22:43)
[2021-11-25 16:38] LABS: Lab Add On Test DONE
--- NOTE | 2021-11-25 17:08 | PDOC.CMIN ---
- If Service Date Differs Date of service: 11/25/21 Time of Service: 17:08 Care Management Initial Assess REASON FOR HOSPITALIZATION:: Altered Mental Status, Uremia PAST MEDICAL HISTORY/PAST SURGICAL HISTORY:: All Active Problems. NSTEMI (non-ST elevated myocardial infarction) (Acute). Colitis (Acute). Pneumonia (Acute). Pancreatitis, acute (Acute). Alcoholism with alcohol dependence (Acute). Encephalopathy acute (Acute). Alcoholic hepatitis without ascites (Acute). Renal failure (Acute). Uremia (Acute). Altered mental status (Acute) PREVIOUS FUNCTIONAL STATUS/SOCIAL/FAMILY SUPPORTS:: Carla was not able to engage, therefore her history was reported from her sister, Marysol. Carla has 5 siblings, one of which from cirrhosis. Carla has four children. Her youngest daughter a couple years ago from complications from diabetes. Carla has a long history of ETOH use, and often passes up on social gatherings, if she isn't able to drink. She is independent with ADL's. CURRENT FUNCTIONAL STATUS:: Carla was not able to engage with CM due to her AMS. CM asked Carla if she was ok with [facility] sharing information with her sister, Marysol, and she said yes. Marysol was in the room, and Carla recognized her. Marysol called her Homa, which is her middle name, and she responds to it. CM completed a HIPAA with her RN as a witness to the verbal permission. She was transferred to the ICU due to her instability today. CM will continue to follow. ADVANCE DIRECTIVES:: Not on file. Has patient been provided with info about the portal/API?: No Did the patient sign up for the portal?: No CODE STATUS:: Full Code INSURANCE COVERAGE / FINANCIAL ISSUES:: Unknown. CM discussed this with access, and asked that they follow up tomorrow to see if she is able to provide this information. CURRENT HOME/COMMUNITY SERVICES/EQUIPMENT:: No known services/equipment. PRIMARY CARE PHYSICIAN:: Unknown. POTENTIAL DISCHARGE NEEDS:: Evaluations for further needs, volleyball coach, follow up appointments. PATIENT/FAMILY EDUCATION NEEDS:: Review discharge instructions and limitations, discussion of self care needs including ask me three. ANTICIPATED BARRIERS TO DISCHARGE:: None identified. TRANSPORTATION:: Via private vehicle with family. PLAN:: Carla Luther was moved to the ICU today for closer monitoring. She will likely return home once medically cleared. Her family will drive her home via private vehicle. She will follow up with her PCP and discharge plan of care. CM will continue to follow.
[2021-11-25] MEDS: HYDROmorphone 2 MG/ML SYR 1 MG IVP (20:38)
[2021-11-25 21:33] LABS: Bilirubin Small (Negative); Blood Large (Negative); Clarity Cloudy (Clear); Glucose 100 mg/dL (Negative); Ketones Negative (Negative); Leukocyte Esterase Small (Negative); Nitrite Positive (Negative); Urobilinogen 0.2 EU/dL (Up TO 0.2)
[2021-11-25 21:40] LABS: *AMPHETAMINES SCREEN URINE Negative (Negative); *BARBITURATES SCREEN URINE Negative (Negative); *BENZODIAZEPINES SCREEN URINE Negative (Negative); Cannabinoids THC Negative (Negative); Cocaine Screen,Urine Negative (Negative); METHADONE URINE SCREEN Negative (Negative); OPIATES URINE SCREEN Negative (Negative); Tricyclic Antidepressants Negative (Negative)
[2021-11-25 21:43] LABS: Epithelial Cells Few HPF (Negative); Other Cells Rare Transitional (Negative); WBC 20-50 HPF (0-5)
[2021-11-25 21:44] LABS: Bacteria Many HPF (Negative); C & S Indicated? Yes; Casts Negative LPF (Negative); Crystals Negative HPF (Negative); Mucus Moderate (Negative)
[2021-11-26] VITALS (20 sets, daily range): BP systolic 103–190; BP diastolic 57–81; PULSE 92–135; RESP 18–33; TEMP 37–37.1; O2SAT 96
[2021-11-26] MEDS: Lactated Ringers 1,000 ML 200 ML IV ×2 (01:27→06:23)
[2021-11-26] MEDS: THIAMINE 500 MG in Normal Saline 100 ML 200 MG IVPB ×2 (04:15→12:56)
[2021-11-26] MEDS: Normal Saline Flush 10 ML SYR IVP ×2 (05:44→18:30)
[2021-11-26 06:38] LABS: Abs Immature Grans 0.47 10^3/uL (0.0-0.06); Absolute Eosinophil Count 0.07 10^3/uL (0.0-0.7); Absolute Lymphocyte Count 1.52 10^3/uL (1.2-3.4); Absolute Monocyte Count 1.93 10^3/uL (0.1-0.8); Basophils % 0.4; Eosinophils % 0.6; HCT 24.7 % (36.0-46.0); HGB 8.8 g/dL (11.2-15.7); Immature Grans % 4.1; Lymphocytes % 13.4; MCH 31.4 pg (27.0-33.0); MCHC 35.6 % (32.0-36.0); MCV 88 fL (80-95); Neutrophils % 64.5; Nucleated RBC 0.3 % (0.0-0.3); RDW 15.4 % (11.7-14.6); RDW-SD 48.8 fL; WBC 11.33 10^3/uL (4.4-10.8)
[2021-11-26 06:43] LABS: Absolute Basophil Count 0.05 10^3/uL (0.0-0.2); Absolute Neutrophil Count 7.31 10^3/uL (1.2-6.7)
[2021-11-26 07:15] LABS: Diff Comment Diff Reviewed; Platelet Count 14 10^3/uL (130-400)
[2021-11-26 07:16] LABS: Poikilocytes 2+
--- NOTE | 2021-11-26 07:18 | PUCC_ITS ---
General Date of Service Date of service: 11/26/21 Time of Service: 06:18 Reason for Admission to ICU: Acute renal failure Assessment and Plan Assessment and plan (1) Troponin level elevated: Status: Acute (2) Thrombocytopenia: Status: Chronic (3) Elevated lipase: Status: Acute (4) Alcoholic hepatitis without ascites: Status: Acute (5) Uremic encephalopathy: Status: Acute (6) C. difficile colitis: Status: Acute (7) Acute renal failure: Status: Acute (8) Hypokalemia: Status: Acute (9) Coagulopathy: Status: Acute (10) Lactic acidosis: Status: Acute (11) High anion gap metabolic acidosis: Status: Acute (12) Normal anion gap metabolic acidosis: Status: Acute (13) Hypoalbuminemia: Status: Acute Assessment and plan: This is a 57 yo female who is admitted to the ICU who likely has alcoholic induced hepatitis with liver function abnormalities in addition to C. Diff with suspected very poor PO intakes matched with insensible losses from the diarrhea who now has acute renal failure. She has uremic encephalopathy and possible withdrawal. Despite significant fluid resuscitation she remains euvolemic and has not had any significant improvement in her renal function (only 240cc output since 11/24/21). Given the liver failure an albumin and Lasix challenge may improve her urine output and this will be given this morning in addition to a 750cc bolus. I will discontinue the maintenance fluids as they have not helped her. She is indicated for dialysis due to the uremic encephalopathy and with the low urine output her case should be discussed with a tertiary care center for consideration of transfer. Recommendations Pulmonary: No acute concerns Cardiac: Elevated Troponin - due to demand ischemia and troponin retention due to renal failure - no need to continue to trend Renal: Acute renal failure - likely ATN - albumin 25% with Lasix 100mg - bolus 750cc LR - discontinue maintenance fluids - repeat UA - getting renal ultrasound today - recommend renal consultation Mixed AGMA and NAGMA - Uremia causing GAP acidosis - non GAP cause by both renal failure and GI losses - urine sodium, urine potassium, urine chloride to assess urine GAP to determine main driving cause of NAGMA Lactic acidosis, resolved - resolve with fluids Hypokalemia - would only given very low dose repletion if K falls below 3.2 I&O: Intake & Output 11/23/21 11/24/21 11/25/21 11/26/21 23:59 23:59 23:59 23:59 Intake Total 7544.533 / 7544.533 2090. / Output Total 155 / 155 Balance 7389.533 / 7389.533 / Weight 66 kg 71.6 kg Daily Fluid Goal:: positive, 1L GI Nutrition: Nutrition - patient unable to eat - chocking due to encephalopathy - if cannot take in PO by tomorrow recommend NGT placement with renal tube feeds Elevated lipase - unclear if this is pancreatitis - elevated lipase and abdominal pain - pain from pancreas versus colitis - no need to continue trending this Liver Dysfunction - agree with acute hepatitis panel - agree with ultrasound Date of Last Bowel Movement: 11/25/21 Infectious Disease: C. Diff colitis - no diarrhea overnight - on IV Flagyl as she cannot swallow - if NGT placed tomorrow then would give PO Vanc Hematologic: Thrombocytopenia - worsening today due to dilution - agree with holing DVT ppx for now - due to hepatitis vs sepsis - likely none of the platelets are even functional given uremia Coagulopathy - will send for DIC labs Neurologic: Uremic Encephalopathy - recommend discussion with nephrology about dialysis - avoid deliriogenic medications if possible - continue to monitor Possible EtOH withdrawal? - on CIWA protocol - would try to avoid giving alot of ativan if possible - on IV thiamine Endocrine: No acute concerns Lines: Midline [place] Prophylaxis: Holding DVT ppx - thrombocytopenia and uremia Code Status: Resuscitation Status Full Code Subjective Critical and life-threatening events over the past 24 hours: This is a 57 yo female with an unclear medical history, but one that may include alcohol abuse who had several days of little to no PO intake and diarrhea from C. Diff. She was found to have acute renal failure and was started on fluids. She is currently almost 10L positive currently without drastic improvement in UOP or Cr/BUN. She also has altered mental status. Her baseline renal function is unknown and there are no known home medications. Her lipase is elevated and she has abdominal pain but her CT is not consistent with pancreatitis, and her abdominal pain may infact be due to the C. Diff. She told me she has abdominal pain when asked. She does not know her name or where she is. Exam Narrative Exam Narrative: POCUS 11/26/21: Adequate cardiac windows obtained. Normal cardiac function with possibly an underfilled RV. IVC is small and flattens >50% with inspiration. Gen: NAD, icteric appearing. HENT: PERRL, moist oral mucosa, Mallampati 2, No LAD or JVD Chest: No respiratory distress, normal appearance of chest, clear to auscultation bilaterally, no crackles or wheezes, normal inspiratory effort Heart: regular rate and rhythym, no murmurs, rubs or gallops Abdomen: Non-distended, soft, tender Extremities: No clubbing, edema, cyanosis, rashes Neuro: Non-focal, tremors present, AAOx0 Psych: cooperative Most Recent VS/Results Last Vital Signs Temp 37.0 C 11/26/21 04:35 Pulse 92 H 11/26/21 06:00 Resp 24 11/26/21 07:00 BP 172/81 H 11/26/21 06:00 Pulse Ox 96 11/26/21 00:00 Laboratory Results - last 24 hr 11/25/21 11/25/21 11/25/21 09:00 09:00 09:00 WBC RBC Hgb Hct MCV MCH MCHC RDW Plt Count MPV Immature Gran % Neutrophils % Lymphocytes % Monocytes % Eosinophils % Basophils % Nucleated RBC % Absolute Neutrophils Absolute Lymphocytes Absolute Monocytes Absolute Eosinophils Absolute Basophils RBC Morphology Poikilocytosis PT 12.0 H INR 1.2 H VBG Lactate Sodium 134 L Potassium 3.3 L Chloride 102 Carbon Dioxide 15.1 L Anion Gap 16.9 H BUN 98 H* Creatinine 6.2 H* Estimated GFR/1.73 m2 6.96 Glucose 127 H Calcium 7.8 L Phosphorus Magnesium Total Bilirubin Conjugated Bilirubin AST ALT Alkaline Phosphatase Creatine Kinase Troponin I 173 H* Total Protein Albumin Lipase TSH Cancelled 0.92 Urine Color Urine Clarity Urine pH Ur Specific [place] Urine Protein Urine Ketones Urine Blood Urine Nitrite Urine Bilirubin Urine Urobilinogen Ur Leukocyte Esterase Urine RBC Urine WBC Ur Epithelial Cells Urine Crystals Urine Bacteria Urine Casts Urine Mucus Urine Other Ur Culture Indicated? Urine Glucose Stl C.difficile Tox PCR Urine Opiates Screen Urine Methadone Screen Ur Barbiturates Screen Ur Tricyclics Screen Ur Amphetamines Screen U Benzodiazepines Scrn Urine Cocaine Screen Ur THC Screen Add-On Test Request 11/25/21 11/25/21 11/25/21 09:00 09:00 12:33 WBC RBC Hgb Hct MCV MCH MCHC RDW Plt Count MPV Immature Gran % Neutrophils % Lymphocytes % Monocytes % Eosinophils % Basophils % Nucleated RBC % Absolute Neutrophils Absolute Lymphocytes Absolute Monocytes Absolute Eosinophils Absolute Basophils RBC Morphology Poikilocytosis PT INR VBG Lactate 0.8 Sodium Cancelled Potassium Cancelled Chloride Cancelled Carbon Dioxide Cancelled Anion Gap Cancelled BUN Cancelled Creatinine Cancelled Estimated GFR/1.73 m2 Cancelled Glucose Cancelled Calcium Cancelled Phosphorus Magnesium Total Bilirubin Conjugated Bilirubin AST ALT Alkaline Phosphatase Creatine Kinase 564 H Troponin I Total Protein Albumin Lipase TSH Urine Color Urine Clarity Urine pH Ur Specific [place] Urine Protein Urine Ketones Urine Blood Urine Nitrite Urine Bilirubin Urine Urobilinogen Ur Leukocyte Esterase Urine RBC Urine WBC Ur Epithelial Cells Urine Crystals Urine Bacteria Urine Casts Urine Mucus Urine Other Ur Culture Indicated? Urine Glucose Stl C.difficile Tox PCR Urine Opiates Screen Urine Methadone Screen Ur Barbiturates Screen Ur Tricyclics Screen Ur Amphetamines Screen U Benzodiazepines Scrn Urine Cocaine Screen Ur THC Screen Add-On Test Request 11/25/21 11/25/21 11/25/21 12:45 15:15 15:15 WBC RBC Hgb Hct MCV MCH MCHC RDW Plt Count MPV Immature Gran % Neutrophils % Lymphocytes % Monocytes % Eosinophils % Basophils % Nucleated RBC % Absolute Neutrophils Absolute Lymphocytes Absolute Monocytes Absolute Eosinophils Absolute Basophils RBC Morphology Poikilocytosis PT INR VBG Lactate Sodium 135 L Potassium 3.0 L Chloride 104 Carbon Dioxide 18.6 L Anion Gap 12.4 H BUN 96 H* Creatinine 6.0 H* Estimated GFR/1.73 m2 7.23 Glucose 138 H Calcium 7.5 L Phosphorus Magnesium Total Bilirubin Conjugated Bilirubin AST ALT Alkaline Phosphatase Creatine Kinase 619 H Troponin I Total Protein Albumin Lipase TSH Urine Color Urine Clarity Urine pH Ur Specific [place] Urine Protein Urine Ketones Urine Blood Urine Nitrite Urine Bilirubin Urine Urobilinogen Ur Leukocyte Esterase Urine RBC Urine WBC Ur Epithelial Cells Urine Crystals Urine Bacteria Urine Casts Urine Mucus Urine Other Ur Culture Indicated? Urine Glucose Stl C.difficile Tox PCR Positive A Urine Opiates Screen Urine Methadone Screen Ur Barbiturates Screen Ur Tricyclics Screen Ur Amphetamines Screen U Benzodiazepines Scrn Urine Cocaine Screen Ur THC Screen Add-On Test Request 11/25/21 11/25/21 11/25/21 15:15 18:33 21:20 WBC RBC Hgb Hct MCV MCH MCHC RDW Plt Count MPV Immature Gran % Neutrophils % Lymphocytes % Monocytes % Eosinophils % Basophils % Nucleated RBC % Absolute Neutrophils Absolute Lymphocytes Absolute Monocytes Absolute Eosinophils Absolute Basophils RBC Morphology Poikilocytosis PT INR VBG Lactate Sodium Cancelled Potassium Cancelled Chloride Cancelled Carbon Dioxide Cancelled Anion Gap Cancelled BUN Cancelled Creatinine Cancelled Estimated GFR/1.73 m2 Cancelled Glucose Cancelled Calcium Cancelled Phosphorus Magnesium Total Bilirubin Conjugated Bilirubin AST ALT Alkaline Phosphatase Creatine Kinase Troponin I Total Protein Albumin Lipase TSH Urine Color Dark Yellow Urine Clarity Cloudy Urine pH 7.0 Ur Specific [place] 1.020 Urine Protein >=300 H Urine Ketones Negative Urine Blood Large H Urine Nitrite Positive H Urine Bilirubin Small H Urine Urobilinogen 0.2 Ur Leukocyte Esterase Small H Urine RBC 10-20 H Urine WBC 20-50 H Ur Epithelial Cells Few Urine Crystals Negative Urine Bacteria Many Urine Casts Negative Urine Mucus Moderate Urine Other Rare Transitional Ur Culture Indicated? Yes Urine Glucose 100 Stl C.difficile Tox PCR Urine Opiates Screen Urine Methadone Screen Ur Barbiturates Screen Ur Tricyclics Screen Ur Amphetamines Screen U Benzodiazepines Scrn Urine Cocaine Screen Ur THC Screen Add-On Test Request DONE 11/25/21 11/25/21 11/25/21 21:20 Unknown Unknown WBC RBC Hgb Hct MCV MCH MCHC RDW Plt Count MPV Immature Gran % Neutrophils % Lymphocytes % Monocytes % Eosinophils % Basophils % Nucleated RBC % Absolute Neutrophils Absolute Lymphocytes Absolute Monocytes Absolute Eosinophils Absolute Basophils RBC Morphology Poikilocytosis PT INR VBG Lactate Sodium Potassium Chloride Carbon Dioxide Anion Gap BUN Creatinine Estimated GFR/1.73 m2 Glucose Calcium Phosphorus Magnesium Total Bilirubin Conjugated Bilirubin AST ALT Alkaline Phosphatase Creatine Kinase Troponin I Total Protein Albumin Lipase TSH Urine Color Urine Clarity Urine pH Ur Specific [place] Urine Protein Urine Ketones Urine Blood Urine Nitrite Urine Bilirubin Urine Urobilinogen Ur Leukocyte Esterase Urine RBC Urine WBC Ur Epithelial Cells Urine Crystals Urine Bacteria Urine Casts Urine Mucus Urine Other Ur Culture Indicated? Urine Glucose Stl C.difficile Tox PCR Urine Opiates Screen Negative Urine Methadone Screen Negative Ur Barbiturates Screen Negative Ur Tricyclics Screen Negative Ur Amphetamines Screen Negative U Benzodiazepines Scrn Negative Urine Cocaine Screen Negative Ur THC Screen Negative Add-On Test Request DONE Cancelled 11/25/21 11/26/21 11/26/21 Unknown 03:22 03:22 WBC 11.33 H RBC 2.80 L Hgb 8.8 L D Hct 24.7 L MCV 88 MCH 31.4 MCHC 35.6 RDW 15.4 H Plt Count 14 L* D MPV Immature Gran % 4.1 Neutrophils % 64.5 Lymphocytes % 13.4 Monocytes % 17.0 Eosinophils % 0.6 Basophils % 0.4 Nucleated RBC % 0.3 Absolute Neutrophils 7.31 H Absolute Lymphocytes 1.52 Absolute Monocytes 1.93 H Absolute Eosinophils 0.07 Absolute Basophils 0.05 RBC Morphology See Below Poikilocytosis 2+ PT INR VBG Lactate Sodium Potassium Chloride Carbon Dioxide Anion Gap BUN Creatinine Estimated GFR/1.73 m2 Glucose Calcium Phosphorus Magnesium Cancelled Total Bilirubin Cancelled Conjugated Bilirubin Cancelled AST Cancelled ALT Cancelled Alkaline Phosphatase Cancelled Creatine Kinase Troponin I Total Protein Cancelled Albumin Cancelled Lipase Cancelled TSH Urine Color Urine Clarity Urine pH Ur Specific [place] Urine Protein Urine Ketones Urine Blood Urine Nitrite Urine Bilirubin Urine Urobilinogen Ur Leukocyte Esterase Urine RBC Urine WBC Ur Epithelial Cells Urine Crystals Urine Bacteria Urine Casts Urine Mucus Urine Other Ur Culture Indicated? Urine Glucose Stl C.difficile Tox PCR Urine Opiates Screen Urine Methadone Screen Ur Barbiturates Screen Ur Tricyclics Screen Ur Amphetamines Screen U Benzodiazepines Scrn Urine Cocaine Screen Ur THC Screen Add-On Test Request [facility] 11/26/21 11/26/21 11/26/21 03:22 03:22 05:55 WBC RBC Hgb Hct MCV MCH MCHC RDW Plt Count MPV Immature Gran % Neutrophils % Lymphocytes % Monocytes % Eosinophils % Basophils % Nucleated RBC % Absolute Neutrophils Absolute Lymphocytes Absolute Monocytes Absolute Eosinophils Absolute Basophils RBC Morphology Poikilocytosis PT Cancelled INR Cancelled VBG Lactate Sodium Cancelled Potassium Cancelled Chloride Cancelled Carbon Dioxide Cancelled Anion Gap Cancelled BUN Cancelled Creatinine Cancelled Estimated GFR/1.73 m2 Cancelled Glucose Cancelled Calcium Cancelled Phosphorus Cancelled Magnesium Total Bilirubin Conjugated Bilirubin AST ALT Alkaline Phosphatase Creatine Kinase Troponin I Total Protein Albumin Lipase TSH Urine Color Urine Clarity Urine pH Ur Specific [place] Urine Protein Urine Ketones Urine Blood Urine Nitrite Urine Bilirubin Urine Urobilinogen Ur Leukocyte Esterase Urine RBC Urine WBC Ur Epithelial Cells Urine Crystals Urine Bacteria Urine Casts Urine Mucus Urine Other Ur Culture Indicated? Urine Glucose Stl C.difficile Tox PCR Urine Opiates Screen Urine Methadone Screen Ur Barbiturates Screen Ur Tricyclics Screen Ur Amphetamines Screen U Benzodiazepines Scrn Urine Cocaine Screen Ur THC Screen Add-On Test Request Review of Systems All systems reviewed & are unremarkable except as noted in HPI and below Time spent with patient Time spent in Critical Care: 50 Time spent in Critical care included: Coordination of care, Chart review, Documenting critically ill care, Time at immediate bedside and Discussing critically ill care with other medical staff
[2021-11-26 07:38] LABS: INR 1.2 (0.9-1.1); Prothrombin Time 11.6 sec (9.3-11.0)
[2021-11-26 07:39] LABS: Calcium 7.8 mg/dL (8.5-10.1); Chloride 105 mmol/L (98-107); Estimated GFR 6.47 (mL/min/1.73m2); Glucose 99 mg/dL (74-106); Potassium 3.4 mmol/L (3.5-5.1); Sodium 136 mmol/L (136-145)
[2021-11-26 07:43] LABS: ALT 47 U/L (14-59); AST 162 U/L (15-37); Albumin 1.6 g/dL (3.4-5.0); Alkaline Phosphatase 55 U/L (46-116); Bilirubin, Total 2.1 mg/dL (0.2-1.0); Lipase 1457 U/L (73-393); Magnesium 2.3 mg/dL (1.8-2.4); PHOSPHORUS 4.2 mg/dL (2.6-4.7); Total Protein 4.7 g/dL (6.4-8.2)
[2021-11-26 07:48] LABS: CREATININE 6.6 mg/dL (0.55-1.02)
[2021-11-26 07:49] LABS: BUN 103 mg/dL (7-18)
[2021-11-26 07:54] LABS: Bilirubin, Direct 0.5 mg/dL (0.0-0.2)
--- NOTE | 2021-11-26 08:00 | DI.US_ITS ---
Exam(s) US ABDOMEN RENAL EXAM: US ABDOMEN RENAL CLINICAL HISTORY: ARF, alcoholic hepatitis, pancreatitis TECHNIQUE: Ultrasound abdomen performed using standard protocol. COMPARISON: CT CT CHEST/ABD/PEL WO from 11/25/2021 FINDINGS: ABDOMINAL AORTA AND IVC: Visualized portions normal caliber. PANCREAS: Normal where visualized. LIVER: Normal. Hepatopedal flow in the Portal Vein. GALLBLADDER: No evidence of cholelithiasis. No evidence of wall thickening. No pericholecystic fluid identified. There are comet tail artifact seen along the gallbladder wall suggestive of adenomyomatos is. BILIARY SYSTEM: Common bile duct measures < 7 mm. No intrahepatic biliary ductal dilation. VILLATORO'S SIGN: Negative. SPLEEN: Cannot be visualized on this examination. ASCITES: Small amount of fluid seen in Lowery's pouch. Renal size in cm: Right: 12.1. Left: 11.9. Echogenicity: Normal. Hydronephrosis: No. Cyst or mass: No. Nephrolithiasis: No. Other findings: There is a trace amount of fluid in the right perinephric region. Bladder:The bladder was essentially empty. Ureteral jets: Right: Cannot be visualized on this examination. Left: Cannot be visualized on this examination. Renal color flow: Symmetric and within normal limits. IMPRESSION: 1. Unremarkable sonographic appearance of the liver. 2. Small amount of fluid seen adjacent to the right kidney and within Morison's pouch. 3. The urinary bladder cannot be visualized as it was nearly empty. DATA REPOSITORY:
[2021-11-26] MEDS: Nicotine 14 MG/24 HR PATCH TD (08:16)
[2021-11-26] MEDS: Furosemide 100 MG/10 ML VIAL IVP (08:17)
[2021-11-26] MEDS: ALBUMIN HUMAN 25 GM/100 ML BTL IV (08:20)
[2021-11-26] MEDS: Lactated Ringers 500 ML 750 ML IV (08:23)
--- NOTE | 2021-11-26 08:25 | OT.INNT ---
Occupational Therapy Notes 11/26/21 OT consult received and pts chart was reviewed. Pt transitioned to the ICU for a decline in medical care. Due to pts decline in medicare care, OT will need a new referral when MD feels that pt is appropriate at that time. Shital Lopez, OTR/L
[2021-11-26 09:06] LABS: Bilirubin Small (Negative); Blood Large (Negative); Clarity Cloudy (Clear); Glucose Negative (Negative); Ketones Negative (Negative); Leukocyte Esterase Small (Negative); Nitrite Positive (Negative); pH 8.5 (5-8)
--- NOTE | 2021-11-26 09:22 | PDOC.CMPRO ---
- If Service Date Differs Date of service: 11/26/21 Time of Service: 09:22 Care Management Progress Note S/O: Homa remains in the ICU but is waiting for transfer to Med-Surg. She was admitted with AMS and uremia in urgent need of dialysis. Phone calls were made by the provider to all of the tertiary care hospitals in [facility] and several out of state but there was no available bed. After lengthy discussion with most of her family (4 siblings, 3 children and 2 close friends), the decision was made to transition her to comfort care. The family shared that Homa would not want to undergo hemodialysis treatments for the rest of her life, nor did she want any medical care. A: Carla who prefers to be called Homa, is a 57 year old woman admitted on 11/25/21with AMS and uremia P:Carla Luthre was moved to the ICU yesterday for closer monitoring. Attempts to transfer her for dialysis were unsuccessful. After consultation with her family (see above), the decision was made to transfer her to comfort care. CM will continue to support Homa and her family and assess for discharge needs.
[2021-11-26 09:28] LABS: Bacteria Few HPF (Negative); C & S Indicated? Yes; Casts 5-10 Hyaline LPF (Negative); Crystals Negative HPF (Negative); Epithelial Cells Few HPF (Negative); Mucus Negative (Negative); RBC >50 HPF (0-2); WBC >50 HPF (0-5)
[2021-11-26] MEDS: metroNIDAZOLE 500 MG/100 ML BAG 100 MG IVPB (09:43)
--- NOTE | 2021-11-26 10:18 | W.UROLOGYCON ---
Date of service: 11/26/21 Time of Service: 11:03 Assessment and Plan Assessment and plan (1) Acute renal failure: Status: Acute Assessment and plan: I am afraid that without hydronephrosis or distended bladder, there is not much that I have to offer. She would be better served with a insurance broker than a urologist History of Present Illness History of Present Illness Chief Complaint: Renal failure Narrative: This is a 57-year-old woman who was admitted over the weekend with renal failure. The patient has never been to our facility and she has an altered mental status, so we have not been able to obtain an accurate history. It is presumed that she has alcoholic hepatitis and pancreatitis. She also has elevated troponins. I been asked to see her because of the renal failure. She has received boluses of fluid along with IV diuretics with minimal urine output Consults Consult date: 11/26/21 Review of Systems Narrative: Unable to obtain due to patient's mental status PFSH All Active Problems (Updated 11/26/21 @ 09:24 by Erica Cuellar MD) Thrombocytopenia (Chronic) Hypoalbuminemia (Acute) Normal anion gap metabolic acidosis (Acute) High anion gap metabolic acidosis (Acute) Lactic acidosis (Acute) Coagulopathy (Acute) Hypokalemia (Acute) Acute renal failure (Acute) C. difficile colitis (Acute) Uremic encephalopathy (Acute) Elevated lipase (Acute) Troponin level elevated (Acute) Pancreatitis, acute (Acute) Alcoholism with alcohol dependence (Acute) Encephalopathy acute (Acute) Alcoholic hepatitis without ascites (Acute) Renal failure (Acute) Uremia (Acute) Altered mental status (Acute) Medical History (Updated 11/26/21 @ 09:24 by Erica Cuellar MD) Colitis Social History Smoking/Tobacco Use Status: Current-Occasional Smoking risk assessment performed?: Yes Details: Patient unable to answer questions. Do you feel safe at home: Yes Do you feel safe in your relationship?: Yes Exam Narrative Exam Narrative: I reviewed the CT scan done on admission and the abdominal ultrasound done this morning. Neither of these studies demonstrate hydronephrosis or distended bladder. Const General: cooperative Limitations: altered mental status GI Palpation: soft, not firm and not rigid Other: Minimal urine output in catheter over the past hour Results Last Vital Signs Temp 37.0 C 11/26/21 07:57 Pulse 98 H 11/26/21 08:00 Resp 29 H 11/26/21 09:00 BP 175/72 H 11/26/21 08:00 Pulse Ox 96 11/26/21 00:00 Labs Result diagrams: 11/26/21 03:22 11/26/21 07:20 Labs: Laboratory Results - last 24 hr 11/25/21 11/25/21 11/25/21 09:00 12:33 12:45 WBC RBC Hgb Hct MCV MCH MCHC RDW Plt Count MPV Immature Gran % Neutrophils % Lymphocytes % Monocytes % Eosinophils % Basophils % Nucleated RBC % Absolute Neutrophils Absolute Lymphocytes Absolute Monocytes Absolute Eosinophils Absolute Basophils RBC Morphology Poikilocytosis PT INR Sodium Cancelled Potassium Cancelled Chloride Cancelled Carbon Dioxide Cancelled Anion Gap Cancelled BUN Cancelled Creatinine Cancelled Estimated GFR/1.73 m2 Cancelled Glucose Cancelled Calcium Cancelled Phosphorus Magnesium Total Bilirubin Conjugated Bilirubin AST ALT Alkaline Phosphatase Creatine Kinase 564 H Total Protein Albumin Lipase Urine Color Urine Clarity Urine pH Ur Specific [place] Urine Protein Urine Ketones Urine Blood Urine Nitrite Urine Bilirubin Urine Urobilinogen Ur Leukocyte Esterase Urine RBC Urine WBC Ur Epithelial Cells Urine Crystals Urine Bacteria Urine Casts Urine Mucus Urine Other Ur Culture Indicated? Urine Glucose Stl C.difficile Tox PCR Positive A Urine Opiates Screen Urine Methadone Screen Ur Barbiturates Screen Ur Tricyclics Screen Ur Amphetamines Screen U Benzodiazepines Scrn Urine Cocaine Screen Ur THC Screen Add-On Test Request 11/25/21 11/25/21 11/25/21 15:15 15:15 15:15 WBC RBC Hgb Hct MCV MCH MCHC RDW Plt Count MPV Immature Gran % Neutrophils % Lymphocytes % Monocytes % Eosinophils % Basophils % Nucleated RBC % Absolute Neutrophils Absolute Lymphocytes Absolute Monocytes Absolute Eosinophils Absolute Basophils RBC Morphology Poikilocytosis PT INR Sodium 135 L Potassium 3.0 L Chloride 104 Carbon Dioxide 18.6 L Anion Gap 12.4 H BUN 96 H* Creatinine 6.0 H* Estimated GFR/1.73 m2 7.23 Glucose 138 H Calcium 7.5 L Phosphorus Magnesium Total Bilirubin Conjugated Bilirubin AST ALT Alkaline Phosphatase Creatine Kinase 619 H Total Protein Albumin Lipase Urine Color Urine Clarity Urine pH Ur Specific [place] Urine Protein Urine Ketones Urine Blood Urine Nitrite Urine Bilirubin Urine Urobilinogen Ur Leukocyte Esterase Urine RBC Urine WBC Ur Epithelial Cells Urine Crystals Urine Bacteria Urine Casts Urine Mucus Urine Other Ur Culture Indicated? Urine Glucose Stl C.difficile Tox PCR Urine Opiates Screen Urine Methadone Screen Ur Barbiturates Screen Ur Tricyclics Screen Ur Amphetamines Screen U Benzodiazepines Scrn Urine Cocaine Screen Ur THC Screen Add-On Test Request DONE 11/25/21 11/25/21 11/25/21 18:33 21:20 21:20 WBC RBC Hgb Hct MCV MCH MCHC RDW Plt Count MPV Immature Gran % Neutrophils % Lymphocytes % Monocytes % Eosinophils % Basophils % Nucleated RBC % Absolute Neutrophils Absolute Lymphocytes Absolute Monocytes Absolute Eosinophils Absolute Basophils RBC Morphology Poikilocytosis PT INR Sodium Cancelled Potassium Cancelled Chloride Cancelled Carbon Dioxide Cancelled Anion Gap Cancelled BUN Cancelled Creatinine Cancelled Estimated GFR/1.73 m2 Cancelled Glucose Cancelled Calcium Cancelled Phosphorus Magnesium Total Bilirubin Conjugated Bilirubin AST ALT Alkaline Phosphatase Creatine Kinase Total Protein Albumin Lipase Urine Color Dark Yellow Urine Clarity Cloudy Urine pH 7.0 Ur Specific [place] 1.020 Urine Protein >=300 H Urine Ketones Negative Urine Blood Large H Urine Nitrite Positive H Urine Bilirubin Small H Urine Urobilinogen 0.2 Ur Leukocyte Esterase Small H Urine RBC 10-20 H Urine WBC 20-50 H Ur Epithelial Cells Few Urine Crystals Negative Urine Bacteria Many Urine Casts Negative Urine Mucus Moderate Urine Other Rare Transitional Ur Culture Indicated? Yes Urine Glucose 100 Stl C.difficile Tox PCR Urine Opiates Screen Negative Urine Methadone Screen Negative Ur Barbiturates Screen Negative Ur Tricyclics Screen Negative Ur Amphetamines Screen Negative U Benzodiazepines Scrn Negative Urine Cocaine Screen Negative Ur THC Screen Negative Add-On Test Request 11/25/21 11/25/21 11/26/21 Unknown Unknown 03:22 WBC RBC Hgb Hct MCV MCH MCHC RDW Plt Count MPV Immature Gran % Neutrophils % Lymphocytes % Monocytes % Eosinophils % Basophils % Nucleated RBC % Absolute Neutrophils Absolute Lymphocytes Absolute Monocytes Absolute Eosinophils Absolute Basophils RBC Morphology Poikilocytosis PT INR Sodium Potassium Chloride Carbon Dioxide Anion Gap BUN Creatinine Estimated GFR/1.73 m2 Glucose Calcium Phosphorus Magnesium Cancelled Total Bilirubin Cancelled Conjugated Bilirubin Cancelled AST Cancelled ALT Cancelled Alkaline Phosphatase Cancelled Creatine Kinase Total Protein Cancelled Albumin Cancelled Lipase Cancelled Urine Color Urine Clarity Urine pH Ur Specific [place] Urine Protein Urine Ketones Urine Blood Urine Nitrite Urine Bilirubin Urine Urobilinogen Ur Leukocyte Esterase Urine RBC Urine WBC Ur Epithelial Cells Urine Crystals Urine Bacteria Urine Casts Urine Mucus Urine Other Ur Culture Indicated? Urine Glucose Stl C.difficile Tox PCR Urine Opiates Screen Urine Methadone Screen Ur Barbiturates Screen Ur Tricyclics Screen Ur Amphetamines Screen U Benzodiazepines Scrn Urine Cocaine Screen Ur THC Screen Add-On Test Request Cancelled TNP 11/26/21 11/26/21 11/26/21 03:22 03:22 03:22 WBC 11.33 H RBC 2.80 L Hgb 8.8 L D Hct 24.7 L MCV 88 MCH 31.4 MCHC 35.6 RDW 15.4 H Plt Count 14 L* D MPV Immature Gran % 4.1 Neutrophils % 64.5 Lymphocytes % 13.4 Monocytes % 17.0 Eosinophils % 0.6 Basophils % 0.4 Nucleated RBC % 0.3 Absolute Neutrophils 7.31 H Absolute Lymphocytes 1.52 Absolute Monocytes 1.93 H Absolute Eosinophils 0.07 Absolute Basophils 0.05 RBC Morphology See Below Poikilocytosis 2+ PT Cancelled INR Cancelled Sodium Cancelled Potassium Cancelled Chloride Cancelled Carbon Dioxide Cancelled Anion Gap Cancelled BUN Cancelled Creatinine Cancelled Estimated GFR/1.73 m2 Cancelled Glucose Cancelled Calcium Cancelled Phosphorus Magnesium Total Bilirubin Conjugated Bilirubin AST ALT Alkaline Phosphatase Creatine Kinase Total Protein Albumin Lipase Urine Color Urine Clarity Urine pH Ur Specific [place] Urine Protein Urine Ketones Urine Blood Urine Nitrite Urine Bilirubin Urine Urobilinogen Ur Leukocyte Esterase Urine RBC Urine WBC Ur Epithelial Cells Urine Crystals Urine Bacteria Urine Casts Urine Mucus Urine Other Ur Culture Indicated? Urine Glucose Stl C.difficile Tox PCR Urine Opiates Screen Urine Methadone Screen Ur Barbiturates Screen Ur Tricyclics Screen Ur Amphetamines Screen U Benzodiazepines Scrn Urine Cocaine Screen Ur THC Screen Add-On Test Request 11/26/21 11/26/21 11/26/21 05:55 07:20 07:20 WBC RBC Hgb Hct MCV MCH MCHC RDW Plt Count MPV Immature Gran % Neutrophils % Lymphocytes % Monocytes % Eosinophils % Basophils % Nucleated RBC % Absolute Neutrophils Absolute Lymphocytes Absolute Monocytes Absolute Eosinophils Absolute Basophils RBC Morphology Poikilocytosis PT INR Sodium 136 Potassium 3.4 L Chloride 105 Carbon Dioxide 15.0 L Anion Gap 16.0 H BUN 103 H* Creatinine 6.6 H* Estimated GFR/1.73 m2 6.47 Glucose 99 Calcium 7.8 L Phosphorus Cancelled 4.2 Magnesium 2.3 Total Bilirubin 2.1 H Conjugated Bilirubin 0.5 H AST 162 H ALT 47 Alkaline Phosphatase 55 Creatine Kinase Total Protein 4.7 L Albumin 1.6 L Lipase 1457 H Urine Color Urine Clarity Urine pH Ur Specific [place] Urine Protein Urine Ketones Urine Blood Urine Nitrite Urine Bilirubin Urine Urobilinogen Ur Leukocyte Esterase Urine RBC Urine WBC Ur Epithelial Cells Urine Crystals Urine Bacteria Urine Casts Urine Mucus Urine Other Ur Culture Indicated? Urine Glucose Stl C.difficile Tox PCR Urine Opiates Screen Urine Methadone Screen Ur Barbiturates Screen Ur Tricyclics Screen Ur Amphetamines Screen U Benzodiazepines Scrn Urine Cocaine Screen Ur THC Screen Add-On Test Request 11/26/21 11/26/21 07:20 08:50 WBC RBC Hgb Hct MCV MCH MCHC RDW Plt Count MPV Immature Gran % Neutrophils % Lymphocytes % Monocytes % Eosinophils % Basophils % Nucleated RBC % Absolute Neutrophils Absolute Lymphocytes Absolute Monocytes Absolute Eosinophils Absolute Basophils RBC Morphology Poikilocytosis PT 11.6 H INR 1.2 H Sodium Potassium Chloride Carbon Dioxide Anion Gap BUN Creatinine Estimated GFR/1.73 m2 Glucose Calcium Phosphorus Magnesium Total Bilirubin Conjugated Bilirubin AST ALT Alkaline Phosphatase Creatine Kinase Total Protein Albumin Lipase Urine Color Dark Yellow Urine Clarity Cloudy Urine pH 8.5 H Ur Specific [place] 1.020 Urine Protein >=300 H Urine Ketones Negative Urine Blood Large H Urine Nitrite Positive H Urine Bilirubin Small H Urine Urobilinogen 1.0 H Ur Leukocyte Esterase Small H Urine RBC >50 H Urine WBC >50 H Ur Epithelial Cells Few Urine Crystals Negative Urine Bacteria Few Urine Casts 5-10 Hyaline Urine Mucus Negative Urine Other Ur Culture Indicated? Yes Urine Glucose Negative Stl C.difficile Tox PCR Urine Opiates Screen Urine Methadone Screen Ur Barbiturates Screen Ur Tricyclics Screen Ur Amphetamines Screen U Benzodiazepines Scrn Urine Cocaine Screen Ur THC Screen Add-On Test Request
[2021-11-26] MEDS: Furosemide 100 MG/10 ML VIAL 120 MG IVP (12:56)
[2021-11-26 13:44] LABS: D-Dimer > 7500 ng/mlFEU (<500); LDH 2933 U/L (81-234)
[2021-11-26] MEDS: HYDROmorphone 2 MG/ML SYR 1 MG IVP ×6 (13:52→22:55)
[2021-11-26] MEDS: LORazepam 2 MG/ML VIAL 1 MG IVP ×6 (13:52→22:55)
--- NOTE | 2021-11-26 15:00 | NT_ITS ---
Date of service: 11/26/21 Time of Service: 14:03 PT Notes Visit Reasons: Altered Mental Status, Uremia Patient is moved to ICU level of care for close monitoring of uremic encephalopathy, acute renal failure, and possible withdrawal symptoms. Will wait for a new referral from hospitalist prior to PT evaluation. Thank you for the opportunity to participate in the care of this patient. Lucie Nascimento PT, DPT, CLT [facility] [place], [place]
[2021-11-26] MEDS: HYDROmorphone 2 MG/ML SYR IVP (15:38)
--- NOTE | 2021-11-26 18:32 | PGE_ITS ---
Date of Service Date of service: 11/26/21 Time of Service: 17:37 Assessment and Plan Assessment and plan (1) Renal failure: Start date: 11/25/21 Status: Acute Assessment and plan: This is a 57-year-old lady who does not seek medical care routinely but no family or friends to represent her history and no previous medical record prese nted to the ED after an out of collar called EMS to have patient evaluated for altered mental status. She was found to have a creatinine of 6.3 with metabolic acidosis and low potassium. She was admitted for IV hydration and potassium repletion as well as previous labs and further evaluation of her chronic problems including most likely alcoholic cirrhosis with chronic alcoholic hepatitis and daily alcohol use. She does appear to have progressed by management of likely but difficult exam is on appear to be having emesis or abdominal discomfort that she reports. Imaging did reveal possible colitis and also patient has some right upper lobe infiltrates which will need covered with antibiotic therapy. She was placed on Zosyn. Overall she should do well with hydration and her baseline renal function will be manifested with time.Pulmonary/critical care consulted. Patient is a full code by default. Her creatinine increased to 6.6. BUN increasted to 103. Remains confused. Now showing more signs of pain and or restlessness. Urine output scant. Has not responding to 8L fluid boluses; along with albumin followed by diuretics. Decision to possibly transfer for dialysis and intensive care vs comfort care was ongoing this AM. Seven hospitals called; 6 at capacity and 1 declined. [facility] did accept her, but after family meeting that included her 4 sisters and 3 children, it was decided that [facility] was what the patient would have wanted and in her best interest. All family members were in agreement. She had voiced to family that she did not want medical interventions. She had not formally designated a healthcare DPOA. She did not follow with any medical providers as an outpatient. IV Dilaudid and Ativan initiated along with other prn [facility] [facility] orders. Palliative consulted and will need Hospice consult. (2) Alcoholic hepatitis without ascites: Start date: 11/25/21 Status: Acute Assessment and plan: Now [employer] status (3) Encephalopathy acute: Start date: 11/25/21 Status: Acute Assessment and plan: Secondary to Uremia. (4) Alcoholism with alcohol dependence: Start date: 11/25/21 Status: Acute Assessment and plan: Now [employer] status (5) Pancreatitis, acute: Start date: 11/25/21 Status: Acute Assessment and plan: PRN dilaudid. (6) Pneumonia: Start date: 11/25/21 Status: Ruled-out Assessment and plan: Initially on Zosyn. Now [employer] status. Supplemental O2 for comfort. (7) Colitis: Start date: 11/25/21 Assessment and plan: C.Difficile +. Stools have slowed significantly. (8) NSTEMI (non-ST elevated myocardial infarction): Start date: 11/25/21 Status: Ruled-out Assessment and plan: Now [employer] [facility] status. Subjective Subjective Patient reports: bowel movement (Freq of stools declining) and afebrile; denies vomiting Interval history since last seen: Pt lethargic. Exam Narrative Exam Narrative: Jaundiced appearing female. Asleep. Arouses to verbal commands. Eyes General: appearance normal, both eyes and all related structures Pupils: regular Resp Effort & Inspection: normal respiratory effort Auscultation: clear to auscultation bilaterally, no rales and no rhonchi Cardio Rate: regular rate Rhythm: regular rhythm Heart Sounds: S1 normal and S2 normal GI Palpation: soft and tender Extrem General: no pedal edema and no calf tenderness Objective Last Vital Signs Temp 37.1 C 11/26/21 11:00 Pulse 111 H 11/26/21 15:37 Resp 18 11/26/21 16:12 BP 103/57 L 11/26/21 15:37 Pulse Ox 96 11/26/21 00:00 Laboratory Results - last 24 hr 11/25/21 11/25/21 11/26/21 21:20 21:20 03:22 WBC RBC Hgb Hct MCV MCH MCHC RDW Plt Count MPV Immature Gran % Neutrophils % Lymphocytes % Monocytes % Eosinophils % Basophils % Nucleated RBC % Absolute Neutrophils Absolute Lymphocytes Absolute Monocytes Absolute Eosinophils Absolute Basophils RBC Morphology Poikilocytosis PT INR D-Dimer Sodium Potassium Chloride Carbon Dioxide Anion Gap BUN Creatinine Estimated GFR/1.73 m2 Glucose Calcium Phosphorus Magnesium Cancelled Total Bilirubin Cancelled Conjugated Bilirubin Cancelled AST Cancelled ALT Cancelled Alkaline Phosphatase Cancelled Lactate Dehydrogenase Total Protein Cancelled Albumin Cancelled Lipase Cancelled Urine Color Dark Yellow Urine Clarity Cloudy Urine pH 7.0 Ur Specific [place] 1.020 Urine Protein >=300 H Urine Ketones Negative Urine Blood Large H Urine Nitrite Positive H Urine Bilirubin Small H Urine Urobilinogen 0.2 Ur Leukocyte Esterase Small H Urine RBC 10-20 H Urine WBC 20-50 H Ur Epithelial Cells Few Urine Crystals Negative Urine Bacteria Many Urine Casts Negative Urine Mucus Moderate Urine Other Rare Transitional Ur Culture Indicated? Yes Urine Glucose 100 Urine Opiates Screen Negative Urine Methadone Screen Negative Ur Barbiturates Screen Negative Ur Tricyclics Screen Negative Ur Amphetamines Screen Negative U Benzodiazepines Scrn Negative Urine Cocaine Screen Negative Ur THC Screen Negative 11/26/21 11/26/21 11/26/21 03:22 03:22 03:22 WBC 11.33 H RBC 2.80 L Hgb 8.8 L D Hct 24.7 L MCV 88 MCH 31.4 MCHC 35.6 RDW 15.4 H Plt Count 14 L* D MPV Immature Gran % 4.1 Neutrophils % 64.5 Lymphocytes % 13.4 Monocytes % 17.0 Eosinophils % 0.6 Basophils % 0.4 Nucleated RBC % 0.3 Absolute Neutrophils 7.31 H Absolute Lymphocytes 1.52 Absolute Monocytes 1.93 H Absolute Eosinophils 0.07 Absolute Basophils 0.05 RBC Morphology See Below Poikilocytosis 2+ PT Cancelled INR Cancelled D-Dimer Sodium Cancelled Potassium Cancelled Chloride Cancelled Carbon Dioxide Cancelled Anion Gap Cancelled BUN Cancelled Creatinine Cancelled Estimated GFR/1.73 m2 Cancelled Glucose Cancelled Calcium Cancelled Phosphorus Magnesium Total Bilirubin Conjugated Bilirubin AST ALT Alkaline Phosphatase Lactate Dehydrogenase Total Protein Albumin Lipase Urine Color Urine Clarity Urine pH Ur Specific [place] Urine Protein Urine Ketones Urine Blood Urine Nitrite Urine Bilirubin Urine Urobilinogen Ur Leukocyte Esterase Urine RBC Urine WBC Ur Epithelial Cells Urine Crystals Urine Bacteria Urine Casts Urine Mucus Urine Other Ur Culture Indicated? Urine Glucose Urine Opiates Screen Urine Methadone Screen Ur Barbiturates Screen Ur Tricyclics Screen Ur Amphetamines Screen U Benzodiazepines Scrn Urine Cocaine Screen Ur THC Screen 11/26/21 11/26/21 11/26/21 05:55 07:20 07:20 WBC RBC Hgb Hct MCV MCH MCHC RDW Plt Count MPV Immature Gran % Neutrophils % Lymphocytes % Monocytes % Eosinophils % Basophils % Nucleated RBC % Absolute Neutrophils Absolute Lymphocytes Absolute Monocytes Absolute Eosinophils Absolute Basophils RBC Morphology Poikilocytosis PT INR D-Dimer Sodium 136 Potassium 3.4 L Chloride 105 Carbon Dioxide 15.0 L Anion Gap 16.0 H BUN 103 H* Creatinine 6.6 H* Estimated GFR/1.73 m2 6.47 Glucose 99 Calcium 7.8 L Phosphorus Cancelled 4.2 Magnesium 2.3 Total Bilirubin 2.1 H Conjugated Bilirubin 0.5 H AST 162 H ALT 47 Alkaline Phosphatase 55 Lactate Dehydrogenase Total Protein 4.7 L Albumin 1.6 L Lipase 1457 H Urine Color Urine Clarity Urine pH Ur Specific [place] Urine Protein Urine Ketones Urine Blood Urine Nitrite Urine Bilirubin Urine Urobilinogen Ur Leukocyte Esterase Urine RBC Urine WBC Ur Epithelial Cells Urine Crystals Urine Bacteria Urine Casts Urine Mucus Urine Other Ur Culture Indicated? Urine Glucose Urine Opiates Screen Urine Methadone Screen Ur Barbiturates Screen Ur Tricyclics Screen Ur Amphetamines Screen U Benzodiazepines Scrn Urine Cocaine Screen Ur THC Screen 11/26/21 11/26/21 11/26/21 07:20 08:50 12:55 WBC RBC Hgb Hct MCV MCH MCHC RDW Plt Count MPV Immature Gran % Neutrophils % Lymphocytes % Monocytes % Eosinophils % Basophils % Nucleated RBC % Absolute Neutrophils Absolute Lymphocytes Absolute Monocytes Absolute Eosinophils Absolute Basophils RBC Morphology Poikilocytosis PT 11.6 H INR 1.2 H D-Dimer Sodium Potassium Chloride Carbon Dioxide Anion Gap BUN Creatinine Estimated GFR/1.73 m2 Glucose Calcium Phosphorus Magnesium Total Bilirubin Conjugated Bilirubin AST ALT Alkaline Phosphatase Lactate Dehydrogenase 2933 H Total Protein Albumin Lipase Urine Color Dark Yellow Urine Clarity Cloudy Urine pH 8.5 H Ur Specific [place] 1.020 Urine Protein >=300 H Urine Ketones Negative Urine Blood Large H Urine Nitrite Positive H Urine Bilirubin Small H Urine Urobilinogen 1.0 H Ur Leukocyte Esterase Small H Urine RBC >50 H Urine WBC >50 H Ur Epithelial Cells Few Urine Crystals Negative Urine Bacteria Few Urine Casts 5-10 Hyaline Urine Mucus Negative Urine Other Ur Culture Indicated? Yes Urine Glucose Negative Urine Opiates Screen Urine Methadone Screen Ur Barbiturates Screen Ur Tricyclics Screen Ur Amphetamines Screen U Benzodiazepines Scrn Urine Cocaine Screen Ur THC Screen 11/26/21 12:55 WBC RBC Hgb Hct MCV MCH MCHC RDW Plt Count MPV Immature Gran % Neutrophils % Lymphocytes % Monocytes % Eosinophils % Basophils % Nucleated RBC % Absolute Neutrophils Absolute Lymphocytes Absolute Monocytes Absolute Eosinophils Absolute Basophils RBC Morphology Poikilocytosis PT INR D-Dimer > 7500 H Sodium Potassium Chloride Carbon Dioxide Anion Gap BUN Creatinine Estimated GFR/1.73 m2 Glucose Calcium Phosphorus Magnesium Total Bilirubin Conjugated Bilirubin AST ALT Alkaline Phosphatase Lactate Dehydrogenase Total Protein Albumin Lipase Urine Color Urine Clarity Urine pH Ur Specific [place] Urine Protein Urine Ketones Urine Blood Urine Nitrite Urine Bilirubin Urine Urobilinogen Ur Leukocyte Esterase Urine RBC Urine WBC Ur Epithelial Cells Urine Crystals Urine Bacteria Urine Casts Urine Mucus Urine Other Ur Culture Indicated? Urine Glucose Urine Opiates Screen Urine Methadone Screen Ur Barbiturates Screen Ur Tricyclics Screen Ur Amphetamines Screen U Benzodiazepines Scrn Urine Cocaine Screen Ur THC Screen PAWSS Have you Been Recently Intoxicated or Drunk Within the Last 30 days?: Unable to Obtain Have you Ever Experienced Previous Episodes of Alcohol Withdrawal?: Unable to Obtain Have you ever Experienced Withdrawal Seizures?: Unable to Obtain Have you ever Experienced Delirium Tremens(DT)s?: Unable to Obtain Have you ever undergone Alcohol Rehabilitation Treatment (i.e, inpt ot outpatient treatment programs)?: Unable to Obtain Have you ever Experienced Blackouts?: Unable to Obtain Have you ever Combined Alcohol with other Downers within the last 90 days?: Unable to Obtain Have you ever Combined Alcohol with any other Substance of Abuse during the last 90 days?: Unable to Obtain Positive Blood Alcohol level on [facility]? [PCS.BAL]: Unable to Obtain Evidence of Increased Autonomic Activity (i.e. HR>120, tremor, sweating, agitation, nausea)?: Unable to Obtain
[2021-11-26] MEDS: Scopolamine 1 MG/3 DAYS PATCH TD (19:14)
[2021-11-26 22:40] LABS: Fibrinogen 436 mg/dL (171-384)
[2021-11-27] MEDS: LORazepam 2 MG/ML VIAL 1 MG IVP ×3 (00:12→02:51)
[2021-11-27] MEDS: HYDROmorphone 2 MG/ML SYR 1 MG IVP ×3 (00:12→02:50)
[2021-11-27] MEDS: Normal Saline Flush 10 ML SYR IVP ×3 (00:13→02:51)
[2021-11-27 10:45] LABS: HBs Antibody, Qual Negative (See Note); HBs Antibody, Quant <3.1 mIU/mL (See Note); Hep A Total Ab w Rflx IgM Negative (Negative); Hepatitis B Core Antibody Negative (Negative); Hepatitis B surface Ag Negative (Negative); Hepatitis C Ab w Rflx HCV PCR Negative (Negative)
== END 2021-11-27 03:35 | disposition expired | DRG 432 ==
LOC: ER 11-25 04:12 → MS 11-25 05:15 → ICU 11-25 13:38 → MS 11-26 17:11
PROVIDERS: Family Medicine; Nurse Practitioner Family; Student in an Organized Health Care Education/Training Program; Admitting Provider Family Medicine; Emergency Provider Emergency Medicine; Visit Provider Family Medicine
DX: K70.10 Alcoholic hepatitis without ascites (principal); K85.90 Acute pancreatitis without necrosis or infection, unspecified; N17.0 Acute kidney failure with tubular necrosis; E87.2 Acidosis; G93.49 Other encephalopathy; A04.72 Enterocolitis due to Clostridium difficile, not specified as recurrent; F10.239 Alcohol dependence with withdrawal, unspecified; Z51.5 Encounter for palliative care; E87.6 Hypokalemia; F10.20 Alcohol dependence, uncomplicated; K70.30 Alcoholic cirrhosis of liver without ascites; K52.9 Noninfective gastroenteritis and colitis, unspecified; K71.3 Toxic liver disease with chronic persistent hepatitis; F17.210 Nicotine dependence, cigarettes, uncomplicated; D69.6 Thrombocytopenia, unspecified; E88.09 Other disorders of plasma-protein metabolism, not elsewhere classified
CPT/HCPCS: 36415; 36592; 51702; 71250; 76770; 80048; 80053; 80076; 80307; 82550; 82805; 83690; 84145; 85384; 86704; 86706; 86709; 86803; 87040; 87077; 87340; 87493; 87635; 93005; 96361; 96365; 96368; 96375; 99285; 70450; 74176; 76700; 80320; 80329; 81003; 81015; 82140; 82248; 83605; 83615; 83735; 84100; 84443; 84484; 85025; 85379; 85610; 87086; 87186; 93010; 99233; J1170; J1940; J2060; J2543